=== PATIENT | female | born 1935 | race Caucasian/White ===

== ENCOUNTER 2018-08-14 13:33 | Inpatient (IN) | payer MEDICARE ==
[2018-08-14 13:51] VITALS: BMI 31.3
[2018-08-14] MEDS ORDERED: Sodium Chloride 0.9% 1,000 ML IV SCH (14:15)
[2018-08-14 14:21] LABS: VENOUS BLOOD GAS BASE EXCESS 2.7 mmol/L (0.0-2.0); VENOUS BLOOD GAS PCO2 50 mmHg (40-60); VENOUS BLOOD GAS PO2 24 mm/Hg (30-55); VENOUS BLOOD PH 7.37 (7.32-7.43)
--- NOTE | 2018-08-14 14:32 | ED PDOC ---
HPI: Altered Mental Status Time Seen by Provider: 08/14/18 13:39 Chief Complaint (Provider): Altered Mental Status History Per: Patient, Family (son) History/Exam Limitations: None Onset/Duration Of Symptoms: Days (x2 weeks) Current Symptoms Are (Timing): Still Present Additional Complaint(s): 83 year old female with pmhx of HTN, dementia, and CAD presents to the ED with son, Dr. Quintero of [facility], for evaluation of an altered mental status. As per son, he has been treating pt along with Dr. Brewer for a presumed UTI beginning two weeks ago with macrobid. He states that he did not think she was taking it as prescribed, and thus did not get better, so was started on a second course of it. Over the past week, son states he moved in with pt to observe her becoming more confused and forgetful, i.e. forgetting how to cook, leaving stove on, not knowing how to stir. Today, patient wandered to her jain where she was brought back home by another churchgoer, prompting Dr. Quintero to bring her in for evaluation. Patient is not complaining of anything herself, but son additionally notes that he finds her talking out loud to her parents who when she was [age]. Otherwise denies abdominal pain, chest pain, cough, and back pain. PMD: Dr. Brewer Past Medical History Reviewed: Historical Data, Nursing Documentation, Vital Signs Vital Signs: Last Vital Signs Temp 98 F 08/14/18 13:50 Pulse 83 08/14/18 13:50 Resp BP 161/84 H 08/14/18 13:50 Pulse Ox 100 08/14/18 13:50 - Medical History PMH: Arthritis, CAD, Cardia Arrhythmia, Dementia, Gastritis, HTN, Hypercholesterolemia, Kidney Stones, Chronic Kidney Disease Denies: HIV - Surgical History Surgical History: Cholecystectomy, Pacemaker - Family History Family History: States: Unknown Family Hx - Social History Current smoker - smoking cessation education provided: No Alcohol: None Drugs: Denies - Home Medications Home Medications: Ambulatory Orders Medication Instructions Recorded Atorvastatin Calcium [Lipitor] 40 mg PO HS 05/22/14 Clopidogrel [Plavix] 75 mg PO HS 05/22/14 Esomeprazole Magnesium [Nexium] 40 mg PO DAILY 05/22/14 Folic Acid/Kamilah/Vit A/Vit 1 tab PO DAILY 05/22/14 [Abdielnadyabret Barron] Amlodipine/Valsartan [Exforge 5 1 tab PO DAILY 03/15/15 mg-320 mg] Metoprolol Tartrate [Lopressor] 50 mg PO HS 03/15/15 Ondansetron [Zofran] 4 mg PO Q6H PRN #10 tab 09/09/15 - Allergies Allergies/Adverse Reactions: Allergies Allergy/AdvReac Type Severity Reaction Status Date / Time pineapple AdvReac PAIN Verified 08/13/15 06:39 Review of Systems ROS Statement: Except As Marked, All Systems Reviewed And Found Negative Cardiovascular: Negative for: Chest Pain Respiratory: Negative for: Cough Gastrointestinal: Negative for: Abdominal Pain Musculoskeletal: Negative for: Back Pain Neurological: Positive for: Altered Mental Status Physical Exam - Reviewed Nursing Documentation Reviewed: Yes Vital Signs Reviewed: Yes - Physical Exam Appears: Positive for: No Acute Distress Head Exam: Positive for: ATRAUMATIC, NORMOCEPHALIC Skin: Positive for: Normal Color, Warm. Negative for: Rash Eye Exam: Positive for: Normal appearance ENT: Positive for: Other (mucous membranes dry) Neck: Positive for: Normal, Painless ROM, Supple Cardiovascular/Chest: Positive for: Regular Rate, Rhythm Respiratory: Positive for: Normal Breath Sounds. Negative for: Crackles, Rales, Rhonchi, Wheezing, Respiratory Distress Gastrointestinal/Abdominal: Positive for: Soft, Tenderness (mild bilateral lower and suprapubic tenderness) Back: Negative for: L CVA Tenderness, R CVA Tenderness Extremity: Negative for: Pedal Edema Neurologic/Psych: Positive for: Alert, Oriented, Mood/Affect (cooperative) - Laboratory Results Result Diagrams: 08/14/18 14:13 08/14/18 14:13 Lab Results: pO2 24 mm/Hg (30-55) L 08/14/18 14:15 VBG pH 7.37 (7.32-7.43) 08/14/18 14:15 VBG pCO2 50 mmHg (40-60) 08/14/18 14:15 VBG HCO3 25.5 mmol/L 08/14/18 14:15 VBG Total CO2 30.4 mmol/L (22-28) H 08/14/18 14:15 VBG O2 Sat (Calc) 48.6 % (40-65) 08/14/18 14:15 VBG Base Excess 2.7 mmol/L (0.0-2.0) H 08/14/18 14:15 VBG Potassium 4.8 mmol/L (3.6-5.2) 08/14/18 14:15 Sodium 139.0 mmol/L (132-148) 08/14/18 14:15 Chloride 107.0 mmol/L (98-107) 08/14/18 14:15 Glucose 117 mg/dL (65-105) H 08/14/18 14:15 Lactate 2.3 mmol/L (0.7-2.1) H 08/14/18 14:15 FiO2 21.0 % 08/14/18 14:15 Blood Gas Comments Lac=2.3 08/14/18 14:15 Crit Value Called To shadia Seth 08/14/18 14:15 Crit Value Called By 08/14/18 14:15 Crit Value Read Back Y 08/14/18 14:15 Blood Gas Notified Time 1421 08/14/18 14:15 - ECG O2 Sat by Pulse Oximetry: 100 (RA) Pulse Ox Interpretation: Normal Medical Decision Making Medical Decision Making: Time: 1401 Initial Impression: acute delirium, dementia, possible sepsis Initial Plan: --VBG --CT head without contrast --EKG --CMP --Folate chem --Magnesium chem --Phosphorus chem --TSH --Vitamin B12 chem --CBC with differential --PT / PTT --CXR --NS IV fluids --Rocephin 1gm NS 100ml IVPB --Blood culture --Urine culture --Rectal temp --RPR --Urinary catheter placement --Place on quality assurance monitor final --Urinalysis CXR FINDINGS: LUNGS: No active pulmonary disease. PLEURA: No significant pleural effusion identified, no pneumothorax apparent. CARDIOVASCULAR: No radiographic findings to suggest acute or significant cardiovascular disease. Position/ configuration of pacemaker\AICD device: Satisfactory. Atherosclerotic calcifications identified primarily aortic arch. OSSEOUS STRUCTURES: No significant abnormalities. VISUALIZED UPPER ABDOMEN: Normal. OTHER FINDINGS: None. IMPRESSION: No active disease. No significant interval change compared to the prior examination(s). Scribe Attestation: Documented by Soniya Villa, acting as a scribe for Shadia Haro MD. Provider Scribe Attestation: All medical record entries made by the Scribe were at my direction and personally dictated by me. I have reviewed the chart and agree that the record accurately reflects my personal performance of the history, physical exam, medical decision making, and the department course for this patient. I have also personally directed, reviewed, and agree with the discharge instructions and disposition. 2.30p - case d/w Dr. Brewer - Admit to med/surg for IV hydration and antibiotics for dehydration/UTI causing acute mental status change on chronic long standing dementia. Disposition - Clinical Impression Clinical Impression: Altered mental status - Patient ED Disposition Is Patient to be Admitted: Yes Doctor Will See Patient In The: Hospital - Disposition Disposition: Transfer of Care Disposition Time: 14:50 Condition: FAIR Instructions: Altered Mental Status (DC) - Pt Status Changed To: Hospital Disposition Of: Inpatient - Admit Certification Admit to Inpatient:: After my assessment, the patient will require hospitalization for at least two midnights. This is because of the severity of symptoms shown, intensity of services needed, and/or the medical risk in this patient being treated as an outpatient. - POA Present On Arrival: None
[2018-08-14 14:34] LABS: BASO # 0.1 K/uL (0.0-0.2); BASO % 1.1 % (0.0-2.0); EOS # 0.1 K/uL (0.0-0.7); EOS % 1.3 % (0.0-4.0); HEMOGLOBIN 12.7 g/dL (12.0-16.0); MEAN CELL VOLUME 84.4 fl (81.0-99.0); MEAN CORPUSCULAR HEMOGLOBIN 27.4 pg (27.0-31.0); MEAN CORPUSCULAR HGB CONC 32.5 g/dL (33.0-37.0); MEAN PLATELET VOLUME 7.8 fl (7.2-11.7); MONO # 0.7 K/uL (0.0-0.8); MONO % 8.8 % (0.0-10.0); NEUT # 5.2 K/uL (1.8-7.0); NEUT % 63.8 % (50.0-75.0); NRBC % 0.1 % (0.0-0.0); RBC 4.64 Mil/uL (3.80-5.20); RED CELL DISTRIBUTION WIDTH 14.1 % (11.5-14.5); WHITE BLOOD COUNT 8.1 K/uL (4.8-10.8)
--- NOTE | 2018-08-14 14:35 | RAD ---
Date of service: 08/14/2018 HISTORY: Sepsis Patient COMPARISON: 08/13/2015 FINDINGS: LUNGS: No active pulmonary disease. PLEURA: No significant pleural effusion identified, no pneumothorax apparent. CARDIOVASCULAR: No radiographic findings to suggest acute or significant cardiovascular disease. Position/ configuration of pacemaker Atherosclerotic calcifications identified primarily aortic arch. OSSEOUS STRUCTURES: No significant abnormalities. VISUALIZED UPPER ABDOMEN: Normal. OTHER FINDINGS: None. IMPRESSION: No active disease. No significant interval change compared to the prior examination(s).
[2018-08-14 14:38] LABS: INR 1.1
[2018-08-14 14:41] LABS: PARTIAL THROMBOPLASTIN TIME 32.6 Seconds (25.6-37.1)
[2018-08-14 14:42] LABS: ALB/GLOB RATIO 1.2 (1.0-2.1); ALBUMIN 4.1 g/dL (3.5-5.0); ALT/SGPT 21 U/L (9-52); AST/SGOT 29 U/L (14-36); BLOOD UREA NITROGEN 24 mg/dl (7-17); CALCIUM 9.9 mg/dL (8.4-10.2); GFR NON-AFRICAN AMERICAN 53
[2018-08-14] MEDS ORDERED: cefTRIAXone (Rocephin) 1 gm Inj ONE (15:03)
[2018-08-14 15:11] LABS: URINE BILIRUBIN NEGATIVE (NEGATIVE); URINE CLARITY CLEAR (Clear); URINE COLOR LIGHT YELLOW (YELLOW); URINE GLUCOSE (UA) NEGATIVE (NEGATIVE)
[2018-08-14 15:12] LABS: SQUAMOUS EPITHIAL 1 /hpf (0-5); URINE BACTERIA RARE (<OCC); URINE BLOOD NEGATIVE (NEGATIVE); URINE LEUKOCYTE ESTERASE NEGATIVE Leu/uL (Negative); URINE PROTEIN NEGATIVE (NEGATIVE); URINE UROBILINOGEN 0.2-1.0 mg/dL (0.2-1.0)
--- NOTE | 2018-08-14 15:52 | CT ---
Date of service: 08/14/2018 PROCEDURE: CT HEAD WITHOUT CONTRAST. HISTORY: Confusion. COMPARISON: 07/19/2012. TECHNIQUE: Axial computed tomography images were obtained through the head/brain without intravenous contrast. Supplemental Coronal and Sagittal projections created and reviewed. Radiation dose: Total exam DLP = 712.46 mGy-cm. This CT exam was performed using one or more of the following dose reduction techniques: Automated exposure control, adjustment of the mA and/or kV according to patient size, and/or use of iterative reconstruction technique. FINDINGS: HEMORRHAGE: No intracranial hemorrhage. BRAIN: No mass effect or edema. Cortical and cerebellar atrophy, periventricular small vessel disease. Evidence of left occipital infarct, a nonacute finding although not seen on the prior examination. VENTRICLES: Unremarkable. No hydrocephalus. CALVARIUM: Unremarkable. PARANASAL SINUSES: Unremarkable as visualized. No significant inflammatory changes. MASTOID AIR CELLS: Unremarkable as visualized. No inflammatory changes. OTHER FINDINGS: None. IMPRESSION: No acute findings related to/ accounting for the clinical presentation. No significant interval change compared to 07/19/2012.
--- NOTE | 2018-08-14 20:29 | CARD ---
APPROVED REPORT Date of service: 08/14/2018 EKG Measurement Heart [id number] MD [id number] <Conclusion> Normal sinus rhythm with marked first degree AVB NDSTT abnormalities Borderlinel ECG
[2018-08-14] MEDS: Dextrose 5%/0.45% NS 1,000 ML IV SCH (20:35)
[2018-08-15 07:12] LABS: BASO % 0.6 % (0.0-2.0); EOS # 0.1 K/uL (0.0-0.7); EOS % 1.5 % (0.0-4.0); HEMOGLOBIN 12.4 g/dL (12.0-16.0); MEAN CELL VOLUME 83.8 fl (81.0-99.0); MEAN CORPUSCULAR HEMOGLOBIN 28.2 pg (27.0-31.0); MEAN CORPUSCULAR HGB CONC 33.6 g/dL (33.0-37.0); MONO # 0.4 K/uL (0.0-0.8); MONO % 6.3 % (0.0-10.0); NEUT # 4.5 K/uL (1.8-7.0); NEUT % 63.6 % (50.0-75.0); NRBC % 0.1 % (0.0-0.0); RBC 4.4 Mil/uL (3.80-5.20); RED CELL DISTRIBUTION WIDTH 14.1 % (11.5-14.5)
[2018-08-15 07:25] LABS: ALB/GLOB RATIO 1.2 (1.0-2.1); ALBUMIN 3.8 g/dL (3.5-5.0); ALT/SGPT 17 U/L (9-52); AST/SGOT 24 U/L (14-36); BLOOD UREA NITROGEN 16 mg/dl (7-17); CALCIUM 9.5 mg/dL (8.4-10.2); GFR NON-AFRICAN AMERICAN > 60; HDL CHOLESTEROL 47 MG/DL (30-70)
[2018-08-15 07:31] LABS: LDL CHOLESTEROL 102 mg/dL (0-129)
[2018-08-15] MEDS: Pantoprazole 40 mg EC Tab PO SCH (08:40)
[2018-08-15] MEDS ORDERED: AMLODIPINE PO SCH (09:00)
[2018-08-15] MEDS ORDERED: VALSARTAN PO SCH (09:00)
[2018-08-15] MEDS: Dextrose 5%/0.45% NS 1,000 ML IV SCH (10:02)
--- NOTE | 2018-08-15 12:14 | CP.PCM.CON ---
History of Present Illness - History of Present Illness History of Present Illness: consult requested for altered mental status 83 year old female with pmhx of HTN, dementia, and CAD presents to the ED with son, for evaluation of an altered mental status. as per son pt was noted to be confused and talking to self on evaluation pt is pleasant cooperative with good eye contact , reported that she lately had decreased appetite, pt was alert and awake denied changes in sleep, speech was normal thought form circumstantial, denied any mood changes, denied perceptual disturbances, non elicited , denied any current suicidal or homicidal ideation oriented to person and partially to place, not oriented to time pt reported that at current mental status she needs help with her instrumental daily activities Past Patient History - Tetanus Immunizations Tetanus Immunization: Unknown - Past Medical History & Family History Past Medical History?: Yes - Past Social History Smoking Status: Never Smoked - CARDIAC Hx Cardia Arrhythmia: Yes Hx Hypercholesterolemia: Yes Hx Hypertension: Yes Hx Pacemaker: Yes - PULMONARY Hx Respiratory Disorders: No - NEUROLOGICAL Hx Dementia: Yes - HEENT Hx HEENT Problems: No - RENAL Hx Chronic Kidney Disease: Yes - ENDOCRINE/METABOLIC Hx Endocrine Disorders: No - HEMATOLOGICAL/ONCOLOGICAL Hx Human Immunodeficiency Virus (HIV): No - INTEGUMENTARY Hx Dermatological Problems: No - MUSCULOSKELETAL/RHEUMATOLOGICAL Hx Arthritis: Yes Hx Falls: Yes - GASTROINTESTINAL Hx Gastritis: Yes - GENITOURINARY/GYNECOLOGICAL Hx Genitourinary Disorders: No - PSYCHIATRIC Hx Psychophysiologic Disorder: No Hx Substance Use: No - SURGICAL HISTORY Hx Cholecystectomy: Yes - ANESTHESIA Hx Anesthesia: Yes Hx Anesthesia Reactions: No Hx Malignant Hyperthermia: No Meds Allergies/Adverse Reactions: Allergies Allergy/AdvReac Type Severity Reaction Status Date / Time pineapple AdvReac PAIN Verified 08/13/15 06:39 - Medications Medications: Current Medications Acetaminophen (Tylenol 325mg Tab) 650 mg PO Q6 PRN PRN Reason: Pain, Mild (1-3) Atorvastatin Calcium (Lipitor) 40 mg PO HS [facility] Last Admin: 08/14/18 22:50 Dose: 40 mg Clopidogrel Bisulfate (Plavix) 75 mg PO HS [facility] Last Admin: 08/14/18 21:01 Dose: 75 mg Home Med (Amlodipine/Valsartan [Exforge 5-320 Mg Tablet]) 1 tab PO DAILY [facility] Dextrose/Sodium Chloride (Dextrose 5%/0.45% Ns 1000 Ml) 1,000 mls @ 80 mls/hr IV .[id number] [facility] Stop: 08/15/18 20:11 Last Admin: 08/14/18 20:35 Dose: 80 mls/hr Ceftriaxone Sodium 1 gm/ (Sodium Chloride) 100 mls @ 100 mls/hr IVPB DAILY [facility]; Protocol Last Admin: 08/15/18 08:37 Dose: 100 mls/hr Metoprolol Tartrate (Lopressor) 50 mg PO HS [facility] Last Admin: 08/14/18 21:01 Dose: 50 mg Ondansetron HCl (Zofran Tab) 4 mg PO Q6H PRN PRN Reason: Nausea/Vomiting Last Admin: 08/14/18 20:33 Dose: 4 mg Ondansetron HCl (Zofran Inj) 4 mg IVP Q4 PRN PRN Reason: Nausea/Vomiting Last Admin: 08/15/18 08:37 Dose: 4 mg Pantoprazole Sodium (Protonix Ec Tab) 40 mg PO DAILY [facility] Last Admin: 08/15/18 08:40 Dose: 40 mg Results - Vital Signs Recent Vital Signs: Last Vital Signs Temp 97.9 F 08/15/18 08:53 Pulse 63 08/15/18 08:53 Resp 20 08/15/18 08:53 BP 165/69 H 08/15/18 08:53 Pulse Ox 99 08/15/18 08:53 - Labs Result Diagrams: 08/15/18 06:50 08/15/18 06:50 Labs: Laboratory Results - last 24 hr 08/14/18 08/14/18 08/14/18 14:13 14:13 14:13 WBC 8.1 RBC 4.64 Hgb 12.7 Hct 39.1 MCV 84.4 MCH 27.4 MCHC 32.5 L RDW 14.1 Plt Count 228 MPV 7.8 Neut % (Auto) 63.8 Lymph % (Auto) 25.0 Grady % (Auto) 8.8 Eos % (Auto) 1.3 Baso % (Auto) 1.1 Neut # (Auto) 5.2 Lymph # (Auto) 2.0 Grady # (Auto) 0.7 Eos # (Auto) 0.1 Baso # (Auto) 0.1 PT 12.0 INR 1.1 APTT 32.6 pO2 VBG pH VBG pCO2 VBG HCO3 VBG Total CO2 VBG O2 Sat (Calc) VBG Base Excess VBG Potassium Glucose Lactate FiO2 Blood Gas Comments Crit Value Called To Crit Value Called By Crit Value Read Back Blood Gas Notified Time Sodium 140 Potassium 4.8 Chloride 102 Carbon Dioxide 28 Anion Gap 15 BUN 24 H Creatinine 1.0 Est GFR ( Amer) > 60 Est GFR (Non-Af Amer) 53 Random Glucose 113 H Calcium 9.9 Phosphorus 3.4 Magnesium 2.0 Total Bilirubin 0.3 AST 29 ALT 21 Alkaline Phosphatase 75 Total Protein 7.4 Albumin 4.1 Globulin 3.3 Albumin/Globulin Ratio 1.2 Triglycerides Cholesterol LDL Cholesterol Direct HDL Cholesterol Vitamin B12 767 Thyroxine (T4) TSH 3rd Generation 4.92 H Venous Blood Potassium Urine Color Urine Clarity Urine pH Ur Specific [place] Urine Protein Urine Glucose (UA) Urine Ketones Urine Blood Urine Nitrate Urine Bilirubin Urine Urobilinogen Ur Leukocyte Esterase Urine RBC (Auto) Urine Microscopic WBC Ur Squamous Epith Cells Urine Bacteria RPR 08/14/18 08/14/18 08/14/18 14:15 14:24 14:40 WBC RBC Hgb Hct MCV MCH MCHC RDW Plt Count MPV Neut % (Auto) Lymph % (Auto) Grady % (Auto) Eos % (Auto) Baso % (Auto) Neut # (Auto) Lymph # (Auto) Grady # (Auto) Eos # (Auto) Baso # (Auto) PT INR APTT pO2 24 L VBG pH 7.37 VBG pCO2 50 VBG HCO3 25.5 VBG Total CO2 30.4 H VBG O2 Sat (Calc) 48.6 VBG Base Excess 2.7 H VBG Potassium 4.8 Glucose 117 H Lactate 2.3 H FiO2 21.0 Blood Gas Comments Lac=2.3 Crit Value Called To lupe Seth Crit Value Called By 22 Crit Value Read Back Y Blood Gas Notified Time 1421 Sodium 139.0 Potassium Chloride 107.0 Carbon Dioxide Anion Gap BUN Creatinine Est GFR ( Amer) Est GFR (Non-Af Amer) Random Glucose Calcium Phosphorus Magnesium Total Bilirubin AST ALT Alkaline Phosphatase Total Protein Albumin Globulin Albumin/Globulin Ratio Triglycerides Cholesterol LDL Cholesterol Direct HDL Cholesterol Vitamin B12 Thyroxine (T4) TSH 3rd Generation Venous Blood Potassium 4.8 Urine Color Light yellow Urine Clarity Clear Urine pH 6.0 Ur Specific [place] 1.013 Urine Protein Negative Urine Glucose (UA) Negative Urine Ketones Trace Urine Blood Negative Urine Nitrate Negative Urine Bilirubin Negative Urine Urobilinogen 0.2-1.0 Ur Leukocyte Esterase Negative Urine RBC (Auto) 3 Urine Microscopic WBC 2 Ur Squamous Epith Cells 1 Urine Bacteria Rare RPR Nonreactive 08/15/18 08/15/18 06:50 06:50 WBC 7.0 RBC 4.40 Hgb 12.4 Hct 36.8 MCV 83.8 MCH 28.2 MCHC 33.6 RDW 14.1 Plt Count 232 MPV 8.0 Neut % (Auto) 63.6 Lymph % (Auto) 28.0 Grady % (Auto) 6.3 Eos % (Auto) 1.5 Baso % (Auto) 0.6 Neut # (Auto) 4.5 Lymph # (Auto) 2.0 Grady # (Auto) 0.4 Eos # (Auto) 0.1 Baso # (Auto) 0.0 PT INR APTT pO2 VBG pH VBG pCO2 VBG HCO3 VBG Total CO2 VBG O2 Sat (Calc) VBG Base Excess VBG Potassium Glucose Lactate FiO2 Blood Gas Comments Crit Value Called To Crit Value Called By Crit Value Read Back Blood Gas Notified Time Sodium 139 Potassium 4.4 Chloride 102 Carbon Dioxide 28 Anion Gap 13 BUN 16 Creatinine 0.8 Est GFR ( Amer) > 60 Est GFR (Non-Af Amer) > 60 Random Glucose 113 H Calcium 9.5 Phosphorus Magnesium Total Bilirubin 0.4 AST 24 ALT 17 Alkaline Phosphatase 66 Total Protein 7.0 Albumin 3.8 Globulin 3.2 Albumin/Globulin Ratio 1.2 Triglycerides 303 H D Cholesterol 205 H LDL Cholesterol Direct 102 HDL Cholesterol 47 Vitamin B12 764 Thyroxine (T4) 6.25 TSH 3rd Generation 2.73 Venous Blood Potassium Urine Color Urine Clarity Urine pH Ur Specific [place] Urine Protein Urine Glucose (UA) Urine Ketones Urine Blood Urine Nitrate Urine Bilirubin Urine Urobilinogen Ur Leukocyte Esterase Urine RBC (Auto) Urine Microscopic WBC Ur Squamous Epith Cells Urine Bacteria RPR Assessment & Plan - Assessment and Plan (Free Text) Assessment: delirium due to medical condition resolving Major neurocognitive disorder moderate Plan: recommend starting namenda 5mg daily could be increased to 10mg daily pt psychiatrically cleared for discharge upon medical clearance
--- NOTE | 2018-08-15 13:04 | CP.PCM.HP ---
History of Present Illness - History of Present Illness History of Present Illness: CC: AMS. 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 Worsening symptoms: Lack of appetite. Also, Pt star been Tx with Microbid for UTI 2 weeks ago without improvement, unknown if Pt took the complete course of abx. Pt continue with urinary burning and pressure sensation, mild intensity pain 3:10. She started 2nd course of abx over the past week. Aggravated factor: ADL's, not in compliance with medications. Denied: Fever, chills, n/v/d, abdominal pain, CP, palpitations, syncope, SOB, cough, back pain, sick contact, recent travel out of [facility]. CXR: No active disease. EKG: Normal sinus rythm with 1st degree AVB. NDSTT abnormalities. Present on Admission - Present on Admission Any Indicators Present on Admission: No Review of Systems - Review of Systems Systems not reviewed;Unavailable: Acuity of Condition, Dementia Past Patient History - Tetanus Immunizations Tetanus Immunization: Unknown - Past Medical History & Family History Past Medical History?: Yes Pertinent Family History: As per record: One sister with PPM. Father of Heart disease. Mother of Renal Failure. Brother of Alzheimer complication. - Past Social History Smoking Status: Never Smoked Alcohol: None Drugs: Denies Home Situation {Lives}: Alone - CARDIAC Hx Cardiac Disorders: Yes Hx Cardia Arrhythmia: Yes Hx Hypercholesterolemia: Yes Hx Hypertension: Yes Hx Pacemaker: Yes - PULMONARY Hx Respiratory Disorders: No - NEUROLOGICAL Hx Neurological Disorder: Yes Hx Dementia: Yes - HEENT Hx HEENT Problems: No - RENAL Hx Chronic Kidney Disease: Yes - ENDOCRINE/METABOLIC Hx Endocrine Disorders: No - HEMATOLOGICAL/ONCOLOGICAL Hx Blood Disorders: No Hx Human Immunodeficiency Virus (HIV): No - INTEGUMENTARY Hx Dermatological Problems: No - MUSCULOSKELETAL/RHEUMATOLOGICAL Hx Musculoskeletal Disorders: Yes Hx Arthritis: Yes Hx Falls: Yes - GASTROINTESTINAL Hx Gastrointestinal Disorders: Yes Hx Gastritis: Yes - GENITOURINARY/GYNECOLOGICAL Hx Genitourinary Disorders: No - PSYCHIATRIC Hx Psychophysiologic Disorder: No Hx Substance Use: No - SURGICAL HISTORY Hx Surgeries: Yes Hx Cholecystectomy: Yes - ANESTHESIA Hx Anesthesia: Yes Hx Anesthesia Reactions: No Hx Malignant Hyperthermia: No Meds Allergies/Adverse Reactions: Allergies Allergy/AdvReac Type Severity Reaction Status Date / Time pineapple AdvReac PAIN Verified 08/13/15 06:39 Physical Exam - Constitutional Appears: No Acute Distress - Head Exam Head Exam: NORMAL INSPECTION - Eye Exam Eye Exam: PERRL - ENT Exam ENT Exam: Normal Exam - Neck Exam Neck exam: Positive for: Normal Inspection - Respiratory Exam Respiratory Exam: NORMAL BREATHING PATTERN - Cardiovascular Exam Cardiovascular Exam: REGULAR RHYTHM - GI/Abdominal Exam GI & Abdominal Exam: Normal Bowel Sounds, Soft - Rectal Exam Rectal Exam: NORMAL INSPECTION - Extremities Exam Extremities exam: Positive for: normal inspection - Back Exam Back exam: NORMAL INSPECTION - Neurological Exam Additional comments: Awake, Ox1, confused, forgetful, disoriented. - Skin Skin Exam: Warm Results - Vital Signs Recent Vital Signs: Last Vital Signs Temp 97.9 F 08/15/18 08:53 Pulse 63 08/15/18 11:15 Resp 20 08/15/18 08:53 BP 165/69 H 08/15/18 11:15 Pulse Ox 99 08/15/18 08:53 reviewed Lyric - Labs Result Diagrams: 08/15/18 06:50 08/15/18 06:50 Labs: Laboratory Results - last 24 hr 08/14/18 08/14/18 08/14/18 14:13 14:13 14:13 WBC 8.1 RBC 4.64 Hgb 12.7 Hct 39.1 MCV 84.4 MCH 27.4 MCHC 32.5 L RDW 14.1 Plt Count 228 MPV 7.8 Neut % (Auto) 63.8 Lymph % (Auto) 25.0 Gray % (Auto) 8.8 Eos % (Auto) 1.3 Baso % (Auto) 1.1 Neut # (Auto) 5.2 Lymph # (Auto) 2.0 Gray # (Auto) 0.7 Eos # (Auto) 0.1 Baso # (Auto) 0.1 PT 12.0 INR 1.1 APTT 32.6 pO2 VBG pH VBG pCO2 VBG HCO3 VBG Total CO2 VBG O2 Sat (Calc) VBG Base Excess VBG Potassium Glucose Lactate FiO2 Blood Gas Comments Crit Value Called To Crit Value Called By Crit Value Read Back Blood Gas Notified Time Sodium 140 Potassium 4.8 Chloride 102 Carbon Dioxide 28 Anion Gap 15 BUN 24 H Creatinine 1.0 Est GFR ( Amer) > 60 Est GFR (Non-Af Amer) 53 Random Glucose 113 H Calcium 9.9 Phosphorus 3.4 Magnesium 2.0 Total Bilirubin 0.3 AST 29 ALT 21 Alkaline Phosphatase 75 Total Protein 7.4 Albumin 4.1 Globulin 3.3 Albumin/Globulin Ratio 1.2 Triglycerides Cholesterol LDL Cholesterol Direct HDL Cholesterol Vitamin B12 767 Thyroxine (T4) TSH 3rd Generation 4.92 H Venous Blood Potassium Urine Color Urine Clarity Urine pH Ur Specific [place] Urine Protein Urine Glucose (UA) Urine Ketones Urine Blood Urine Nitrate Urine Bilirubin Urine Urobilinogen Ur Leukocyte Esterase Urine RBC (Auto) Urine Microscopic WBC Ur Squamous Epith Cells Urine Bacteria RPR 08/14/18 08/14/18 08/14/18 14:15 14:24 14:40 WBC RBC Hgb Hct MCV MCH MCHC RDW Plt Count MPV Neut % (Auto) Lymph % (Auto) Gray % (Auto) Eos % (Auto) Baso % (Auto) Neut # (Auto) Lymph # (Auto) Gray # (Auto) Eos # (Auto) Baso # (Auto) PT INR APTT pO2 24 L VBG pH 7.37 VBG pCO2 50 VBG HCO3 25.5 VBG Total CO2 30.4 H VBG O2 Sat (Calc) 48.6 VBG Base Excess 2.7 H VBG Potassium 4.8 Glucose 117 H Lactate 2.3 H FiO2 21.0 Blood Gas Comments Lac=2.3 Crit Value Called To lupe Seth Crit Value Called By 22 Crit Value Read Back Y Blood Gas Notified Time 1421 Sodium 139.0 Potassium Chloride 107.0 Carbon Dioxide Anion Gap BUN Creatinine Est GFR ( Amer) Est GFR (Non-Af Amer) Random Glucose Calcium Phosphorus Magnesium Total Bilirubin AST ALT Alkaline Phosphatase Total Protein Albumin Globulin Albumin/Globulin Ratio Triglycerides Cholesterol LDL Cholesterol Direct HDL Cholesterol Vitamin B12 Thyroxine (T4) TSH 3rd Generation Venous Blood Potassium 4.8 Urine Color Light yellow Urine Clarity Clear Urine pH 6.0 Ur Specific [place] 1.013 Urine Protein Negative Urine Glucose (UA) Negative Urine Ketones Trace Urine Blood Negative Urine Nitrate Negative Urine Bilirubin Negative Urine Urobilinogen 0.2-1.0 Ur Leukocyte Esterase Negative Urine RBC (Auto) 3 Urine Microscopic WBC 2 Ur Squamous Epith Cells 1 Urine Bacteria Rare RPR Nonreactive 08/15/18 08/15/18 06:50 06:50 WBC 7.0 RBC 4.40 Hgb 12.4 Hct 36.8 MCV 83.8 MCH 28.2 MCHC 33.6 RDW 14.1 Plt Count 232 MPV 8.0 Neut % (Auto) 63.6 Lymph % (Auto) 28.0 Gray % (Auto) 6.3 Eos % (Auto) 1.5 Baso % (Auto) 0.6 Neut # (Auto) 4.5 Lymph # (Auto) 2.0 Gray # (Auto) 0.4 Eos # (Auto) 0.1 Baso # (Auto) 0.0 PT INR APTT pO2 VBG pH VBG pCO2 VBG HCO3 VBG Total CO2 VBG O2 Sat (Calc) VBG Base Excess VBG Potassium Glucose Lactate FiO2 Blood Gas Comments Crit Value Called To Crit Value Called By Crit Value Read Back Blood Gas Notified Time Sodium 139 Potassium 4.4 Chloride 102 Carbon Dioxide 28 Anion Gap 13 BUN 16 Creatinine 0.8 Est GFR ( Amer) > 60 Est GFR (Non-Af Amer) > 60 Random Glucose 113 H Calcium 9.5 Phosphorus Magnesium Total Bilirubin 0.4 AST 24 ALT 17 Alkaline Phosphatase 66 Total Protein 7.0 Albumin 3.8 Globulin 3.2 Albumin/Globulin Ratio 1.2 Triglycerides 303 H D Cholesterol 205 H LDL Cholesterol Direct 102 HDL Cholesterol 47 Vitamin B12 764 Thyroxine (T4) 6.25 TSH 3rd Generation 2.73 Venous Blood Potassium Urine Color Urine Clarity Urine pH Ur Specific [place] Urine Protein Urine Glucose (UA) Urine Ketones Urine Blood Urine Nitrate Urine Bilirubin Urine Urobilinogen Ur Leukocyte Esterase Urine RBC (Auto) Urine Microscopic WBC Ur Squamous Epith Cells Urine Bacteria RPR reviewed J.P. - EKG Data EKG comments: reviewed J.P. - Imaging and Cardiology Chest x-ray Status: Report reviewed by me ([email or web address].) Assessment & Plan (1) Altered mental status Status: Acute Priority: High (2) Major neurocognitive disorder Status: Acute Priority: High (3) Delirium Status: Resolved (4) Hypertension Status: Chronic Priority: High (5) CAD (coronary artery disease) Status: Chronic Priority: Medium (6) High cholesterol Status: Chronic Priority: High (7) Pacemaker Status: Chronic Priority: Medium - Assessment and Plan (Free Text) Plan: Continue Ceftriaxone, Lipitor, Namenda, Lopressor, Cozaar, Norvasc, Protonix and rest of Tx. Neurology consult appreciated. - Date & Time Date: 08/15/18 Time: 09:30
[2018-08-15 16:47] LABS: FOLATE 13.9 ng/mL
--- NOTE | 2018-08-15 18:02 | CARD ---
APPROVED REPORT Date of service: 08/15/2018 EXAM: Two-dimensional and M-mode echocardiogram with Doppler and color Doppler. Other Information Quality : GoodRhythm : Pacemaker INDICATION LV Function:SystolicDiastolic 2D DIMENSIONS IVSd0.90 (0.7-1.1cm)LVDd3.56 (3.9-5.9cm) LVOT Diameter1.93 (1.8-2.4cm)PWd0.79 (0.7-1.1cm) IVSs1.13 (0.8-1.2cm)LVDs1.71 (2.5-4.0cm) FS (%) 51.9 %PWs1.19 (0.8-1.2cm) M-Mode DIMENSIONS Left Atrium (MM)4.43 (2.5-4.0cm)IVSd0.75 (0.7-1.1cm) Aortic Root2.44 (2.2-3.7cm)LVDd5.71 (4.0-5.6cm) Aortic Cusp Exc.1.34 (1.5-2.0cm)PWd1.00 (0.7-1.1cm) IVSs1.47 cmFS (%) 41 % LVDs3.35 (2.0-3.8cm)PWs1.39 cm Aortic Valve AoV Peak Ubuunzmj412.0cm/sAoV VTI24.3cmAO Peak GR.7mmHg LVOT Peak Czgcjkka654.1cm/sLVOT VTI20.86cmAO Mean GR.4mmHg EARL (VMAX)1.46yb2CFT (VTI)1.55cm2 Mitral Valve E/A ratio0.0 TDI E/Lateral E'0.0E/Medial E'0.0 Tricuspid Valve TR Peak [id number]/sRAP [id number] Peak Gr.26mmHg [id number] LEFT VENTRICLE The left ventricle is normal size. There is normal left ventricular wall thickness. The left ventricular systolic function is normal. The estimated ejection fraction is 60-65% No regional wall motion abnormalities noted.. Transmitral Doppler flow pattern is Grade II-pseudonormal filling dynamics. No left ventricle thrombus noted on this study. There is no ventricular septal defect visualized. There is no left ventricular aneurysm. There is no mass noted in the left ventricle. RIGHT VENTRICLE The right ventricle is normal size. There is normal right ventricular wall thickness. The right ventricular systolic function is normal. A PPM lead is seen in right atrium and right ventricle. ATRIA The left atrium is mildly dilated. The right atrium size is normal. The interatrial septum is intact with no evidence for an atrial septal defect. AORTIC VALVE The aortic valve is normal in structure. No aortic regurgitation is present. There is no aortic valvular stenosis. There is no aortic valvular vegetation. MITRAL VALVE The mitral valve is normal in structure. There is no evidence of mitral valve prolapse. There is no mitral valve stenosis. There is mild mitral valve regurgitation noted. TRICUSPID VALVE The tricuspid valve is normal in structure. There is mild tricuspid valve regurgitation noted. RVSP is calculated at 30 mm Hg. There is no tricuspid valve prolapse or vegetation. There is no tricuspid valve stenosis. PULMONIC VALVE The pulmonary valve is normal in structure. There is no pulmonic valvular regurgitation. There is no pulmonic valvular stenosis. GREAT VESSELS The aortic root is normal in size. The ascending aorta is normal in size. The pulmonary artery is normal. The IVC is normal in size and collapses >50% with inspiration. PERICARDIAL EFFUSION There is no pericardial effusion. There is no pleural effusion. <Conclusion> The estimated ejection fraction is 60-65% Transmitral Doppler flow pattern is Grade II-pseudonormal filling dynamics. A PPM lead is seen in right atrium and right ventricle. The left atrium is mildly dilated. There is mild mitral valve regurgitation noted. There is mild tricuspid valve regurgitation noted. RVSP is calculated at 30 mm Hg. The IVC is normal in size and collapses >50% with inspiration.
[2018-08-16] MEDS: Pantoprazole 40 mg EC Tab PO SCH (08:39)
--- NOTE | 2018-08-16 12:16 | US ---
Date of service: 08/15/2018 PROCEDURE: Duplex ultrasound of the carotid and vertebral arteries. HISTORY: ams COMPARISON: None available. TECHNIQUE: Grayscale and duplex Doppler evaluation of the cervical carotid and vertebral arteries were performed. The common carotid, carotid bifurcations and cervical ICA and proximal ECA were evaluated. The vertebral arteries were evaluated for gross patency and direction. FINDINGS: RIGHT CAROTID ARTERIES: Common Carotid Artery: Normal. Maximal flow velocity of 109.7 cm/s. Carotid Bifurcation: Limited atherosclerotic plaque identified. Internal Carotid Artery:Normal. Maximal flow velocity of 88.7 cm/s. External Carotid Artery (proximal branches): Normal. Maximal flow velocity of 112.9 cm/s. ICA/CCA Ratio: 1.7 LEFT CAROTID ARTERIES: Common Carotid Artery: Normal. Maximal flow velocity of 102.1 cm/s. Carotid Bifurcation: Limited atherosclerotic plaque identified. Internal Carotid Artery:Normal. Maximal flow velocity of 100.3 cm/s. External Carotid Artery (proximal branches): Normal. Maximal flow velocity of 138.1 cm/s. ICA/CCA Ratio: 1.7 VERTEBRAL ARTERIES: Right Vertebral Artery: Patent. Antegrade flow. Left Vertebral Artery: Patent. Antegrade flow. OTHER FINDINGS: None. IMPRESSION: Limited atherosclerotic plaques in the bilateral carotid bulbs without significant stenosis in the bilateral common or internal carotid arteries in the neck identified. Antegrade blood flow is seen in the bilateral vertebral arteries.
--- NOTE | 2018-08-16 12:44 | CP.PCM.CON ---
History of Present Illness - History of Present Illness History of Present Illness: revaluation of patient/ according to staff pt last evening had an episode of agitation, increased irritability and was paranoid/ pt with hx of dementia possible owning pt this morning continues to have waxing and waning in her level of attention, , at times cooperative and other times, irritable, agitated and paranoid towards s taff, pt continues to be oriented to person and partially to place but not to time , Past Patient History - Tetanus Immunizations Tetanus Immunization: Unknown - Past Medical History & Family History Past Medical History?: Yes - Past Social History Smoking Status: Never Smoked Alcohol: None Drugs: Denies Home Situation {Lives}: Alone - CARDIAC Hx Cardiac Disorders: Yes Hx Cardia Arrhythmia: Yes Hx Hypercholesterolemia: Yes Hx Hypertension: Yes Hx Pacemaker: Yes - PULMONARY Hx Respiratory Disorders: No - NEUROLOGICAL Hx Neurological Disorder: Yes Hx Dementia: Yes - HEENT Hx HEENT Problems: No - RENAL Hx Chronic Kidney Disease: Yes - ENDOCRINE/METABOLIC Hx Endocrine Disorders: No - HEMATOLOGICAL/ONCOLOGICAL Hx Blood Disorders: No Hx Human Immunodeficiency Virus (HIV): No - INTEGUMENTARY Hx Dermatological Problems: No - MUSCULOSKELETAL/RHEUMATOLOGICAL Hx Musculoskeletal Disorders: Yes Hx Arthritis: Yes Hx Falls: Yes - GASTROINTESTINAL Hx Gastrointestinal Disorders: Yes Hx Gastritis: Yes - GENITOURINARY/GYNECOLOGICAL Hx Genitourinary Disorders: No - PSYCHIATRIC Hx Psychophysiologic Disorder: No Hx Substance Use: No - SURGICAL HISTORY Hx Surgeries: Yes Hx Cholecystectomy: Yes - ANESTHESIA Hx Anesthesia: Yes Hx Anesthesia Reactions: No Hx Malignant Hyperthermia: No Meds Allergies/Adverse Reactions: Allergies Allergy/AdvReac Type Severity Reaction Status Date / Time pineapple AdvReac PAIN Verified 08/13/15 06:39 - Medications Medications: Current Medications Acetaminophen (Tylenol 325mg Tab) 650 mg PO Q6 PRN PRN Reason: Pain, Mild (1-3) Amlodipine Besylate (Norvasc) 5 mg PO DAILY [facility] Last Admin: 08/16/18 08:39 Dose: 5 mg Atorvastatin Calcium (Lipitor) 40 mg PO HS [facility] Last Admin: 08/15/18 22:03 Dose: 40 mg Clopidogrel Bisulfate (Plavix) 75 mg PO HS [facility] Last Admin: 08/15/18 22:03 Dose: 75 mg Ceftriaxone Sodium 1 gm/ (Sodium Chloride) 100 mls @ 100 mls/hr IVPB DAILY [facility]; Protocol Last Admin: 08/16/18 08:36 Dose: 100 mls/hr Lorazepam (Ativan) 0.5 mg IVP Q8 PRN PRN Reason: Agitation Losartan Potassium (Cozaar) 100 mg PO DAILY [facility] Last Admin: 08/16/18 08:40 Dose: 100 mg Memantine (Namenda) 5 mg PO DAILY [facility] Last Admin: 08/16/18 08:39 Dose: 5 mg Metoprolol Tartrate (Lopressor) 50 mg PO HS [facility] Last Admin: 08/15/18 22:03 Dose: 50 mg Ondansetron HCl (Zofran Tab) 4 mg PO Q6H PRN PRN Reason: Nausea/Vomiting Last Admin: 08/14/18 20:33 Dose: 4 mg Ondansetron HCl (Zofran Inj) 4 mg IVP Q4 PRN PRN Reason: Nausea/Vomiting Last Admin: 08/16/18 07:43 Dose: 4 mg Pantoprazole Sodium (Protonix Ec Tab) 40 mg PO DAILY [facility] Last Admin: 08/16/18 08:39 Dose: 40 mg Risperidone (Risperdal Tab) 0.25 mg PO BID PRN PRN Reason: Agitation Results - Vital Signs Recent Vital Signs: Last Vital Signs Temp 98.5 F 08/16/18 08:13 Pulse 67 08/16/18 08:40 Resp 20 08/16/18 08:13 BP 167/69 H 08/16/18 08:40 Pulse Ox 98 08/16/18 08:13 - Labs Result Diagrams: 08/15/18 06:50 08/15/18 06:50 Labs: Laboratory Results - last 24 hr 08/14/18 08/15/18 08/15/18 14:13 06:50 06:50 Plt Count 232 25-OH Vitamin D Total 23.2 L Folate 13.9 Assessment & Plan - Assessment and Plan (Free Text) Assessment: delirium Major neurocognitive disorder Plan: recommend to start risperidone 0.25 mg bid haldol 0.25mg q6 prn for agitation pt at current mental;status needs arrangement by social sciences instructor for home care on discharge as patient needs assistance with instrumental daily activities and ADL
--- NOTE | 2018-08-16 15:55 | PQF ---
PROVIDER RESPONSE TEXT: UTI treated with iv rocephin, current diagnosis REVIEWER QUERY TEXT: Conflicting Documentation Clarification UTI is documented by the ER and in the admitting order. Treated as an outpatient for UTI. URINE CS <1 ,000 CFU/ML. Currently treated with Rocephin. Please clarify if UTI is a current diagnosis for this a dmission, ruled out or other explanation A single mention of UTI for the same clinical presentation appears in the record. Please clarify the diagnosis/diagnoses. Please also document if the condition is: -- Confirmed and current -- Confirmed, treated and resolved on the current admission -- Ruled out -- Other, please specify The patient's Clinical Indicators include: UTI is documented by the ER and in the admitting order. Treated as an outpatient for UTI. URINE CS <1 ,000 CFU/ML. Currently treated with Rocephin. Please clarify if UTI is a current diagnosis for this a dmission, ruled out or other explanation Query created by: Daina Gupta on 08/16/2018 10:23 AM Electronically signed by: Forest Brewer MD 08/16/2018 3:52 PM
--- NOTE | 2018-08-16 15:55 | PQF ---
PROVIDER RESPONSE TEXT: Dementia with behavioral disturbance. REVIEWER QUERY TEXT: Dementia Type and Associated Features Dementia is documented in the Medical Record. Please specify if the dementia is with or without behav ioral disturbance. Please also specify any behavioral disturbances Such as: -- Aggressive -- Violent -- Combative behavior -- Other, please specify The patient's Clinical Indicators include: Psych: Major neurocognitive disorder moderate Rx: Namenda, prn Ativan Query created by: Daina Gupta on 08/16/2018 10:33 AM Electronically signed by: Forest Brewer MD 08/16/2018 3:52 PM
--- NOTE | 2018-08-16 16:36 | CP.PCM.PN ---
Subjective - Date & Time of Evaluation Date of Evaluation: 08/16/18 Time of Evaluation: 14:35 - Subjective Subjective: F/U AMS. Arousable, agitated last night and in am, also nausea in am today, had Haldol and Zofran IV, calm now, Pt was seen by Psychiatrist programmer analyst consultant, was given Risperdal. Objective - Vital Signs/Intake and Output Vital Signs (last 24 hours): Temp Pulse Resp BP Pulse Ox 98.5 F 67 20 167/69 H 98 08/16/18 08:13 08/16/18 08:40 08/16/18 08:13 08/16/18 08:40 08/16/18 08:13 - Medications Medications: Current Medications Acetaminophen (Tylenol 325mg Tab) 650 mg PO Q6 PRN PRN Reason: Pain, Mild (1-3) Amlodipine Besylate (Norvasc) 5 mg PO DAILY [facility] Last Admin: 08/16/18 08:39 Dose: 5 mg Atorvastatin Calcium (Lipitor) 40 mg PO HS [facility] Last Admin: 08/15/18 22:03 Dose: 40 mg Clopidogrel Bisulfate (Plavix) 75 mg PO HS [facility] Last Admin: 08/15/18 22:03 Dose: 75 mg Haloperidol Lactate (Haldol) 0.5 mg IVP Q6 PRN PRN Reason: Agitation Ceftriaxone Sodium 1 gm/ (Sodium Chloride) 100 mls @ 100 mls/hr IVPB DAILY [facility]; Protocol Last Admin: 08/16/18 08:36 Dose: 100 mls/hr Losartan Potassium (Cozaar) 100 mg PO DAILY [facility] Last Admin: 08/16/18 08:40 Dose: 100 mg Memantine (Namenda) 5 mg PO DAILY [facility] Last Admin: 08/16/18 08:39 Dose: 5 mg Metoprolol Tartrate (Lopressor) 50 mg PO HS [facility] Last Admin: 08/15/18 22:03 Dose: 50 mg Ondansetron HCl (Zofran Tab) 4 mg PO Q6H PRN PRN Reason: Nausea/Vomiting Last Admin: 08/14/18 20:33 Dose: 4 mg Ondansetron HCl (Zofran Inj) 4 mg IVP Q4 PRN PRN Reason: Nausea/Vomiting Last Admin: 08/16/18 07:43 Dose: 4 mg Pantoprazole Sodium (Protonix Ec Tab) 40 mg PO DAILY [facility] Last Admin: 08/16/18 08:39 Dose: 40 mg Risperidone (Risperdal Tab) 0.25 mg PO BID PRN PRN Reason: Agitation - Labs Labs: 08/15/18 06:50 08/15/18 06:50 PT 12.0 Seconds (9.8-13.1) 08/14/18 14:13 INR 1.1 08/14/18 14:13 APTT 32.6 Seconds (25.6-37.1) 08/14/18 14:13 - Constitutional Appears: No Acute Distress - Head Exam Head Exam: NORMAL INSPECTION - Eye Exam Eye Exam: PERRL - ENT Exam ENT Exam: Normal Exam - Neck Exam Neck Exam: Normal Inspection - Respiratory Exam Respiratory Exam: NORMAL BREATHING PATTERN - Cardiovascular Exam Cardiovascular Exam: REGULAR RHYTHM Additional comments: PPM - GI/Abdominal Exam GI & Abdominal Exam: Soft, Normal Bowel Sounds - Extremities Exam Extremities Exam: Normal Inspection - Back Exam Back Exam: NORMAL INSPECTION - Neurological Exam Neurological Exam: Awake Additional comments: sleepy, arousable, Ox1, Forgetful, disoriented, no focal motor sensory deficit - Psychiatric Exam Additional comments: sleepy, arousable, calm ,confused, confabulations - Skin Skin Exam: Warm Assessment and Plan (1) Altered mental status Status: Acute (2) Major neurocognitive disorder Status: Acute (3) Delirium Status: Resolved (4) Hypertension Status: Chronic (5) CAD (coronary artery disease) Status: Chronic (6) High cholesterol Status: Chronic (7) Pacemaker Status: Chronic - Assessment and Plan (Free Text) Plan: Continue Namenda, Risperdal and rest of Tx, Blood C-s an U C-S negative, f/u consent for transfer to [facility].
[2018-08-17] MEDS: Pantoprazole 40 mg EC Tab PO SCH (08:54)
--- NOTE | 2018-08-17 12:35 | CP.PCM.CON ---
History of Present Illness - History of Present Illness History of Present Illness: follow up consult as per staff pt continues to have intermittent episodes, of agitation, resistance to care , paranoid towards staff possible sundowning pt at current mental status would benefit from admission to geriatric psychiatry for medication stabilization upon consent of POA for admission Past Patient History - Tetanus Immunizations Tetanus Immunization: Unknown - Past Medical History & Family History Past Medical History?: Yes - Past Social History Smoking Status: Never Smoked Alcohol: None Drugs: Denies Home Situation {Lives}: Alone - CARDIAC Hx Cardiac Disorders: Yes Hx Cardia Arrhythmia: Yes Hx Hypercholesterolemia: Yes Hx Hypertension: Yes Hx Pacemaker: Yes - PULMONARY Hx Respiratory Disorders: No - NEUROLOGICAL Hx Neurological Disorder: Yes Hx Dementia: Yes - HEENT Hx HEENT Problems: No - RENAL Hx Chronic Kidney Disease: Yes - ENDOCRINE/METABOLIC Hx Endocrine Disorders: No - HEMATOLOGICAL/ONCOLOGICAL Hx Blood Disorders: No Hx Human Immunodeficiency Virus (HIV): No - INTEGUMENTARY Hx Dermatological Problems: No - MUSCULOSKELETAL/RHEUMATOLOGICAL Hx Musculoskeletal Disorders: Yes Hx Arthritis: Yes Hx Falls: Yes - GASTROINTESTINAL Hx Gastrointestinal Disorders: Yes Hx Gastritis: Yes - GENITOURINARY/GYNECOLOGICAL Hx Genitourinary Disorders: No - PSYCHIATRIC Hx Psychophysiologic Disorder: No Hx Substance Use: No - SURGICAL HISTORY Hx Surgeries: Yes Hx Cholecystectomy: Yes - ANESTHESIA Hx Anesthesia: Yes Hx Anesthesia Reactions: No Hx Malignant Hyperthermia: No Meds Allergies/Adverse Reactions: Allergies Allergy/AdvReac Type Severity Reaction Status Date / Time pineapple AdvReac PAIN Verified 08/13/15 06:39 - Medications Medications: Current Medications Acetaminophen (Tylenol 325mg Tab) 650 mg PO Q6 PRN PRN Reason: Pain, Mild (1-3) Amlodipine Besylate (Norvasc) 5 mg PO DAILY [facility] Last Admin: 08/17/18 08:54 Dose: 5 mg Atorvastatin Calcium (Lipitor) [address] [facility] Last Admin: 08/16/18 21:41 Dose: 40 mg Clopidogrel Bisulfate (Plavix) 75 mg PO HS [facility] Last Admin: 08/16/18 21:40 Dose: 75 mg Haloperidol Lactate (Haldol) 0.5 mg IVP Q6 PRN PRN Reason: Agitation Ceftriaxone Sodium 1 gm/ (Sodium Chloride) 100 mls @ 100 mls/hr IVPB DAILY [facility]; Protocol Last Admin: 08/17/18 09:05 Dose: 100 mls/hr Losartan Potassium (Cozaar) 100 mg PO DAILY [facility] Last Admin: 08/17/18 08:53 Dose: 100 mg Memantine (Namenda) 5 mg PO DAILY [facility] Last Admin: 08/17/18 08:54 Dose: 5 mg Metoprolol Tartrate (Lopressor) 50 mg PO HS [facility] Last Admin: 08/16/18 21:40 Dose: 50 mg Ondansetron HCl (Zofran Tab) 4 mg PO Q6H PRN PRN Reason: Nausea/Vomiting Last Admin: 08/14/18 20:33 Dose: 4 mg Ondansetron HCl (Zofran Inj) 4 mg IVP Q4 PRN PRN Reason: Nausea/Vomiting Last Admin: 08/16/18 07:43 Dose: 4 mg Pantoprazole Sodium (Protonix Ec Tab) 40 mg PO DAILY [facility] Last Admin: 08/17/18 08:54 Dose: 40 mg Risperidone (Risperdal Tab) 0.25 mg PO BID PRN PRN Reason: Agitation Results - Vital Signs Recent Vital Signs: Last Vital Signs Temp 98.5 F 08/17/18 08:36 Pulse 108 H 08/17/18 08:54 Resp 19 08/17/18 08:36 BP 162/81 H 08/17/18 08:54 Pulse Ox 97 08/17/18 08:36 - Labs Result Diagrams: 08/15/18 06:50 08/15/18 06:50 Assessment & Plan - Assessment and Plan (Free Text) Assessment: major neurocognitive disorder Plan: continue with risperidone pt would benefit from admission to geriatric psychiatry for medication stabilization
[2018-08-17 16:12] VITALS: BP 119/70; PULSE 74; RESP 20; TEMP 98.1; O2SAT 95
--- NOTE | 2018-08-17 16:56 | CP.PCM.DIS ---
Provider - Provider Date of Admission: 08/14/18 14:50 Attending physician: Forest Brewer MD Consults: 08/15/18 07:28 Psychiatry Consult Routine Comment: Consulting Provider: Giacomo Luong Consulting Physician: Giacomo Luong Reason for Consult: AMS Diagnosis - Discharge Diagnosis (1) Altered mental status Status: Acute Priority: High (2) Major neurocognitive disorder Status: Acute Priority: High (3) Delirium Status: Resolved (4) Hypertension Status: Chronic Priority: High (5) CAD (coronary artery disease) Status: Chronic Priority: Medium (6) High cholesterol Status: Chronic Priority: High (7) Pacemaker Status: Chronic Priority: Medium (8) Dehydration Status: Acute (9) UTI (urinary tract infection) Status: Ruled-out Comment: UTI ruled out Hospital Course - Lab Results Lab Results: Micro Results 08/14/18 14:17 Blood Blood Culture - Preliminary NO GROWTH AFTER 3 DAYS 08/14/18 14:13 Blood Blood Culture - Preliminary NO GROWTH AFTER 3 DAYS 08/14/18 14:40 Urine,Catheterized Urine Culture - Final No Growth (<1,000 CFU/ML) Most Recent Lab Values WBC 7.0 K/uL (4.8-10.8) 08/15/18 06:50 RBC 4.40 Mil/uL (3.80-5.20) 08/15/18 06:50 Hgb 12.4 g/dL (12.0-16.0) 08/15/18 06:50 Hct 36.8 % (34.0-47.0) 08/15/18 06:50 MCV 83.8 fl (81.0-99.0) 08/15/18 06:50 MCH 28.2 pg (27.0-31.0) 08/15/18 06:50 MCHC 33.6 g/dL (33.0-37.0) 08/15/18 06:50 RDW 14.1 % (11.5-14.5) 08/15/18 06:50 Plt Count 232 K/uL (130-400) 08/15/18 06:50 MPV 8.0 fl (7.2-11.7) 08/15/18 06:50 Neut % (Auto) 63.6 % (50.0-75.0) 08/15/18 06:50 Lymph % (Auto) 28.0 % (20.0-40.0) 08/15/18 06:50 [place] % (Auto) 6.3 % (0.0-10.0) 08/15/18 06:50 Eos % (Auto) 1.5 % (0.0-4.0) 08/15/18 06:50 Baso % (Auto) 0.6 % (0.0-2.0) 08/15/18 06:50 Neut # (Auto) 4.5 K/uL (1.8-7.0) 08/15/18 06:50 Lymph # (Auto) 2.0 K/uL (1.0-4.3) 08/15/18 06:50 [place] # (Auto) 0.4 K/uL (0.0-0.8) 08/15/18 06:50 Eos # (Auto) 0.1 K/uL (0.0-0.7) 08/15/18 06:50 Baso # (Auto) 0.0 K/uL (0.0-0.2) 08/15/18 06:50 PT 12.0 Seconds (9.8-13.1) 08/14/18 14:13 INR 1.1 08/14/18 14:13 APTT 32.6 Seconds (25.6-37.1) 08/14/18 14:13 pO2 24 mm/Hg (30-55) L 08/14/18 14:15 VBG pH 7.37 (7.32-7.43) 08/14/18 14:15 VBG pCO2 50 mmHg (40-60) 08/14/18 14:15 VBG HCO3 25.5 mmol/L 08/14/18 14:15 VBG Total CO2 30.4 mmol/L (22-28) H 08/14/18 14:15 VBG O2 Sat (Calc) 48.6 % (40-65) 08/14/18 14:15 VBG Base Excess 2.7 mmol/L (0.0-2.0) H 08/14/18 14:15 VBG Potassium 4.8 mmol/L (3.6-5.2) 08/14/18 14:15 Sodium 139.0 mmol/L (132-148) 08/14/18 14:15 Chloride 107.0 mmol/L (98-107) 08/14/18 14:15 Glucose 117 mg/dL (65-105) H 08/14/18 14:15 Lactate 2.3 mmol/L (0.7-2.1) H 08/14/18 14:15 FiO2 21.0 % 08/14/18 14:15 Blood Gas Comments Lac=2.3 08/14/18 14:15 Crit Value Called To lupe Seth 08/14/18 14:15 Crit Value Called By 08/14/18 14:15 Crit Value Read Back Y 08/14/18 14:15 Blood Gas Notified Time 1421 08/14/18 14:15 Sodium 139 mmol/l (132-148) 08/15/18 06:50 Potassium 4.4 MMOL/L (3.6-5.0) 08/15/18 06:50 Chloride 102 mmol/L (98-107) 08/15/18 06:50 Carbon Dioxide 28 mmol/L (22-30) 08/15/18 06:50 Anion Gap 13 (10-20) 08/15/18 06:50 BUN 16 mg/dl (7-17) 08/15/18 06:50 Creatinine 0.8 mg/dl (0.7-1.2) 08/15/18 06:50 Est GFR ( Amer) > 60 08/15/18 06:50 Est GFR (Non-Af Amer) > 60 08/15/18 06:50 Random Glucose 113 mg/dL (65-105) H 08/15/18 06:50 Calcium 9.5 mg/dL (8.4-10.2) 08/15/18 06:50 Phosphorus 3.4 mg/dl (2.5-4.5) 08/14/18 14:13 Magnesium 2.0 MG/DL (1.6-2.3) 08/14/18 14:13 Total Bilirubin 0.4 mg/dl (0.2-1.3) 08/15/18 06:50 AST 24 U/L (14-36) 08/15/18 06:50 ALT 17 U/L (9-52) 08/15/18 06:50 Alkaline Phosphatase 66 U/L (38-126) 08/15/18 06:50 Total Protein 7.0 G/DL (6.3-8.2) 08/15/18 06:50 Albumin 3.8 g/dL (3.5-5.0) 08/15/18 06:50 Globulin 3.2 gm/dL (2.2-3.9) 08/15/18 06:50 Albumin/Globulin Ratio 1.2 (1.0-2.1) 08/15/18 06:50 Triglycerides 303 mg/DL (0-149) H D 08/15/18 06:50 Cholesterol 205 mg/dL (0-199) H 08/15/18 06:50 LDL Cholesterol Direct 102 mg/dL (0-129) 08/15/18 06:50 HDL Cholesterol 47 MG/DL (30-70) 08/15/18 06:50 Vitamin B12 764 pg/mL (239-931) 08/15/18 06:50 25-OH Vitamin D Total 23.2 NG/ML (30.0-100.0) L 08/15/18 06:50 Folate 13.9 ng/mL 08/14/18 14:13 Thyroxine (T4) 6.25 ug/dl (5.5-11.0) 08/15/18 06:50 TSH 3rd Generation 2.73 mIU/ML (0.46-4.68) 08/15/18 06:50 Venous Blood Potassium 4.8 mmol/L (3.6-5.2) 08/14/18 14:15 Urine Color Light yellow (YELLOW) 08/14/18 14:40 Urine Clarity Clear (Clear) 08/14/18 14:40 Urine pH 6.0 (5.0-8.0) 08/14/18 14:40 Ur Specific [place] 1.013 (1.003-1.030) 08/14/18 14:40 Urine Protein Negative mg/dL (NEGATIVE) 08/14/18 14:40 Urine Glucose (UA) Negative mg/dL (NEGATIVE) 08/14/18 14:40 Urine Ketones Trace mg/dL (NEGATIVE) 08/14/18 14:40 Urine Blood Negative (NEGATIVE) 08/14/18 14:40 Urine Nitrate Negative (NEGATIVE) 08/14/18 14:40 Urine Bilirubin Negative (NEGATIVE) 08/14/18 14:40 Urine Urobilinogen 0.2-1.0 mg/dL (0.2-1.0) 08/14/18 14:40 Ur Leukocyte Esterase Negative [place]/uL (Negative) 08/14/18 14:40 Urine RBC (Auto) 3 /hpf (0-3) 08/14/18 14:40 Urine Microscopic WBC 2 /hpf (0-5) 08/14/18 14:40 Ur Squamous Epith Cells 1 /hpf (0-5) 08/14/18 14:40 Urine Bacteria Rare (<OCC) 08/14/18 14:40 RPR Nonreactive (NONREACTIVE) 08/14/18 14:24 Discharge Exam - Head Exam Head Exam: NORMAL INSPECTION Discharge Plan - Follow Up Plan Condition: FAIR Disposition: DISCHARGE TO PSYCH HOSPITAL Instructions: Urinary Tract Infection, Adult (DC), Altered Mental Status (DC) Additional Instructions: follow up with Dr. Brewer 1 week Referrals: Giacomo Luogn MD [Medical Doctor] - Forest Brewer MD [Staff Provider] -
--- NOTE | 2018-08-18 13:20 | PQF ---
PROVIDER RESPONSE TEXT: Dementia with behavioral disturbance. REVIEWER QUERY TEXT: Altered Mental Status - Underlying Cause A mental status change is documented in the Medical Record. Please specify the underlying cause Such as: --Delirium --Dementia with behavioral disturbance --UTI --Dehydration -- Due to medication -- Cardiac condition please specify -- Electrolyte/metabolic imbalance please specify -- Infectious process please specify -- Neurologic condition please specify -- Psychiatric condition please specify -- Respiratory condition please specify -- Other, please specify The patient's Clinical Indicators include: PMH of dementia . Patient was not on her base line, with a gradual increasing of altered level of con sciousness that began for 2 weeks [employer] with no improvement and lack of appetite. Patient treated with Microbid for UTI 2 weeks ago without improvement, unknown if Pt took the complet e course of abx. Pt continue with urinary burning and pressure sensation, mild intensity pain 3:10.Sh e started 2nd course of abx over the past week. Psych: Delirium due to medical condition resolving, major neurocognitive disorder moderate Rx: Risperdal, Namenda, Rocephin, IVF Query created by: Daina Gupta on 08/17/2018 6:26 AM Electronically signed by: Forest Brewer MD 08/18/2018 1:18 PM
== END 2018-08-17 17:35 | DRG 884 ==
LOC: H.ER 13:33 → H.ERHOLD 14:50 → H.MEDSURG1 18:15
PROVIDERS: ADMIT Internal Medicine Pulmonary Disease; ATTEND Internal Medicine Pulmonary Disease
DX: F01.51 Vascular dementia, unspecified severity, with behavioral disturbance (principal); F05 Delirium due to known physiological condition; N39.0 Urinary tract infection, site not specified; E86.0 Dehydration; I25.10 Atherosclerotic heart disease of native coronary artery without angina pectoris; Z95.0 Presence of cardiac pacemaker; Z91.14 Patient's other noncompliance with medication regimen; I12.9 Hypertensive chronic kidney disease with stage 1 through stage 4 chronic kidney disease, or unspecified chronic kidney disease; N18.9 Chronic kidney disease, unspecified; K21.9 Gastro-esophageal reflux disease without esophagitis; E78.5 Hyperlipidemia, unspecified; E78.00 Pure hypercholesterolemia, unspecified; M19.90 Unspecified osteoarthritis, unspecified site; Z87.442 Personal history of urinary calculi

== ENCOUNTER 2018-08-17 14:20 | Inpatient (IN) | payer MEDICARE ==
[2018-08-17 17:52] VITALS: BMI 28.2
[2018-08-17] MEDS ORDERED: Magnesium Hydroxide Susp 30 ml UD PO PRN (18:28)
[2018-08-17] MEDS ORDERED: Alum-Mag Hydrox-Simethicone Susp (30 mL) PO PRN (18:28)
[2018-08-17] MEDS ORDERED: Bismuth Subsalicylate 262 mg/15 ml Sus (240 ml) PO PRN (18:28)
[2018-08-17 18:49] VITALS: RESP 18
--- NOTE | 2018-08-17 18:51 | PCM.BM ---
<ErnieCoral yatese E - Last Filed: 08/17/18 18:49> Treatment Plan Problems - Problems identified on initial assessmt Anger, Aggression and violent Behaviors Date Initiated: 08/17/18 Time Initiated: 18:50 Assessment reference: HP, NA Status: Active Ineffective Impulse Control Date Initiated: 08/17/18 Time Initiated: 18:52 Assessment reference: HP, NA Status: Active Falls Risk Date Initiated: 08/17/18 Time Initiated: 18:53 Assessment reference: HP, NA Status: Active Treatment assets and liabiliti Patient Assests: good support system, negotiates basic needs Patient Liabilities: live alone, medical problems, imparied memory - Milieu Protocol Maintain good personal hygiene: daily Encourage regular showers, daily Remind patient to perform daily oral care, daily Assist patient to perform ADL's Conduct patient checks and document Observation sheet: Q15 minutes Maintain personal safety: every shift Educate patient to report safety concerns to staff, every shift Monitor environment for contraband/sharps Medication safety: Monitor for expected outcome, potential side effects: every shift, Assess barriers to learning: every shift, Assess readiness for medication education: every shift <Polina Bae - Last Filed: 08/18/18 09:59> - Diagnosis (1) Unspecified psychosis Status: Acute Interventions: Medication management, Individual and group therapy, Psychoeducation 08/18/18 09:59 (2) Dementia Status: Acute Interventions: Medication management, Individual and group therapy, Psychoeducation 08/18/18 09:59
--- NOTE | 2018-08-18 08:30 | PCM.PSYCH ---
Initial Psychiatric Evaluation - Initial Psychiatric Evaluation Type of Admission: Voluntary Chief Complaint (in patient's own words): "I have memory problems." Patient's Reaction to Hospitalization: HPI: 83 yo female, with h/o Dementia, HTN, CAD, HLD, GERD, admitted w/ worsening memory, behavioral disturbances, mood lability and worsening paranoia. Patient currently oriented to self and "hospital." She does not know date or president. She reports that she has intermittent feelings of depression and anxiety, but denies currently feeling depressed/anxious. She continues to be paranoid and believes that some unknown people are trying to steal her belongings. She also reports that she does not feel safe in the hospital. She acknowledged that she has memory problems. She denies acute suicidal ideation/plan/intent; but does report that she feels like her father is calling her to join him (in ). She denies sleep/appetite disturbances. No HI. No current AH/VH. Case discussed w/ patients' son and health care proxy, Dr. Quintero. PMHx: Dementia, HTN, CAD, HLD, GERD PPHx: Patient was started on Risperdal 0.25 mg PO BID PRN on the medical unit; no other current psychiatric treatment ALL: Pineapple SHx: Lives alone, from [place]; denies drugs/etoh/cig use Current Medications: Active Medications Generic Name Dose Route Start Last Admin Trade Name Freq PRN Reason Stop Dose Admin Acetaminophen 650 mg 08/17/18 18:28 Tylenol 325mg Tab PO Q4 PRN Pain, moderate (4-7) Al Hydrox/Mg Hydrox/Simethicone 30 ml 08/17/18 18:28 Maalox Plus 30 Ml PO Q4 PRN Dyspepsia Amlodipine Besylate 5 mg 08/18/18 09:00 Norvasc PO DAILY [facility] Atorvastatin Calcium 40 mg 08/17/18 22:00 08/17/18 21:04 Lipitor PO 40 mg HS [facility] Administration Bismuth Subsalicylate 524 mg 08/17/18 18:28 Pepto-Bismol PO Q4 PRN Diarrhea Clopidogrel Bisulfate 75 mg 08/17/18 22:00 08/17/18 21:05 Plavix PO 75 mg HS [facility] Administration Lorazepam 0.5 mg 08/17/18 18:28 Ativan PO 08/31/18 18:29 HS PRN Insomnia Lorazepam 0.5 mg 08/17/18 18:28 Ativan PO 08/31/18 18:29 Q6 PRN Anixety/Agitation Losartan Potassium 100 mg 08/18/18 09:00 Cozaar PO DAILY [facility] Magnesium Hydroxide 30 ml 08/17/18 18:28 Milk Of Magnesia PO HS PRN Constipation Memantine 5 mg 08/18/18 09:00 Namenda PO DAILY [facility] Metoprolol Tartrate 50 mg 08/17/18 22:00 08/17/18 21:05 Lopressor PO 50 mg HS [facility] Administration Multivitamins/Minerals 1 tab 08/18/18 09:00 Therapeutic-M Tab PO DAILY [facility] Ondansetron HCl 4 mg 08/17/18 18:42 08/17/18 22:14 Zofran Tab PO 4 mg Q6H PRN Administration Nausea/Vomiting Pantoprazole Sodium 40 mg 08/18/18 09:00 Protonix Ec Tab PO DAILY [facility] Risperidone 0.25 mg 08/17/18 18:31 Risperdal Tab PO BID PRN Agitation Past Psychiatric History - Past Psychiatric History Pertinent Medical Hx (Current Medical&Sleep Prob, Allergies): Allergies Allergy/AdvReac Type Severity Reaction Status Date / Time pineapple AdvReac PAIN Verified 08/13/15 06:39 Atorvastatin Calcium [Lipitor] 40 mg PO HS 05/22/14 Clopidogrel [Plavix] 75 mg PO HS 05/22/14 Esomeprazole Magnesium [Nexium] 40 mg PO DAILY 05/22/14 Folic Acid/[place]amil[place]/Vit A/Vit [Pastillabret Barron] 1 tab PO DAILY 05/22/14 Amlodipine/Valsartan [Exforge 5-320 mg Tablet] 1 tab PO DAILY 03/15/15 Metoprolol Tartrate [Lopressor] 50 mg PO HS 03/15/15 Ondansetron [Zofran Tab] 4 mg PO Q6H PRN #10 tab 09/09/15 Losartan Potassium [Cozaar] 100 mg PO DAILY 08/17/18 Memantine [Namenda] 5 mg PO DAILY tab 08/17/18 Pantoprazole [Protonix] 40 mg PO DAILY 08/17/18 amLODIPine [Norvasc] 5 mg PO DAILY 08/17/18 risperiDONE [RisperDAL Tab] 0.25 mg PO BID PRN tab 08/17/18 Review of Systems - Psychiatric Psychiatric: As Per HPI, Anxiety, Behavioral Changes, Confusion, Depression, Difficulty Concentrating, Memory Loss, Mood Swings, Paranoia Mental Status Examination - Personal Presentation Personal Presentation: Looks stated age - Affect Affect: Constricted - Motor Activity Motor Activity: Calm - Reliability in Providing Information Reliability in Providing Information: Poor, due to cognitve impairment - Speech Speech: Coherent - Mood Mood: Neutral - Formal Thought Process Formal Thought Process: Paranoia, Loosening of associations, Circumstantial - Hallucinations/Delusions Additional comments: Denies acute AH/VH - Obsessions/Compulsions Obsessions: No Compulsions: No - Cognitive Functions Orientation: Person, Place ("Hospital") Sensorium: Alert Attention/Concentration: Easily distracted Estimate of Intelligence: Average Judgement: Imparied, as evidence by: Poor judgement, Imparied, as evidence by: Lack of insight into illness Memory: Recent impaired, as evidence by: Inability to recall events of the day, Recent imparied as evidence by:Inability to complete 3/3 object recall, Remote impaired as evidenced by: Inability to recall sig life events, Remote impaired as evidenced by: Inability to recall historical events - Risk Risk: Diminished functioning - Strength & Assets Inventory Strength & Assets Inventory: Family support - Limitations Limitations: Living alone, Decreased memory, recent DSM 5 DX - DSM 5 DSM 5 Diagnosis: Dementia with behavioral disturbances; Psychosis NOS - Recommended/Plan of Treatment Treatment Recommendations and Plan of Treatment: Dementia with behavioral disturbances; Psychosis NOS -Admit to psychiatry unit -Start Risperdal 0.5 mg PO Daily@1700 -Continue Namenda -Medicine consult -Psychology consult -Individual and group therapy -Psychoeducation -Case discussed w/ patient's son, Dr. Quintero -Disposition planning- patient will likely need assisted placement when she is psychiatrically stable Projected ELOS: 5-10 days Discharge Plan and Discharge Criteria: Discharge when patient is psychiatrically stable - Smoking Cessation Smoking Cessation Initiated: No Reason for not providing: Not indicated
[2018-08-18] MEDS ORDERED: Pantoprazole 40 mg EC Tab PO SCH ×2 (09:00)
[2018-08-18] MEDS ORDERED: Multivitamin With Minerals Tab PO SCH (09:00)
--- NOTE | 2018-08-18 15:41 | PCM.BM ---
Treatment Plan Problems - Problems identified on initial assessmt Anger, Aggression and violent Behaviors Date Initiated: 08/17/18 Time Initiated: 18:50 Assessment reference: HP, NA Status: Active Ineffective Impulse Control Date Initiated: 08/17/18 Time Initiated: 18:52 Assessment reference: HP, NA Status: Active Falls Risk Date Initiated: 08/17/18 Time Initiated: 18:53 Assessment reference: HP, NA Status: Active knowledge defficit/hypertention Date Initiated: 08/18/18 Time Initiated: 15:39 Assessment reference: HP, NA Status: Monitor Priority: 8 Treatment assets and liabiliti Patient Assests: good support system, negotiates basic needs Patient Liabilities: live alone, medical problems, imparied memory - Milieu Protocol Maintain good personal hygiene: daily Encourage regular showers, daily Remind patient to perform daily oral care, daily Assist patient to perform ADL's Conduct patient checks and document Observation sheet: Q15 minutes Maintain personal safety: every shift Educate patient to report safety concerns to staff, every shift Monitor environment for contraband/sharps Medication safety: Monitor for expected outcome, potential side effects: every shift, Assess barriers to learning: every shift, Assess readiness for medication education: every shift Milieu Narrative: Dementia with behavioral disturbances; Psychosis NOS -Admit to psychiatry unit -Start Risperdal 0.5 mg PO Daily@1700 -Continue Namenda -Medicine consult -Psychology consult -Individual and group therapy -Psychoeducation -Case discussed w/ patient's son, Dr. Quintero -Disposition planning- patient will likely need senior care placement when she is psychiatrically stable Discharge/Continuing Care - Treatment Team Participation Patient/Family/SO Statement: Dementia with behavioral disturbances; Psychosis NOS -Admit to psychiatry unit -Start Risperdal 0.5 mg PO Daily@1700 -Continue Namenda -Medicine consult -Psychology consult -Individual and group therapy -Psychoeducation -Case discussed w/ patient's son, Dr. Quintero -Disposition planning- patient will likely need senior care placement when she is psychiatrically stable
[2018-08-18 16:06] VITALS: TEMP 98.4
[2018-08-18 16:16] VITALS: BP 129/64; PULSE 67
[2018-08-18] MEDS ORDERED: Risperidone M tab 0.5MG PO SCH (17:00)
--- NOTE | 2018-08-18 17:07 | CP.PCM.CON ---
History of Present Illness - History of Present Illness History of Present Illness: Internal medicine consult. 83 y/o F, with PMHx: Dementia, HTN, CAD, E Reflux, Dyslipidemia, admitted to [facility], from MED-SURG floor to Geropsch unit on 08/17/18 to continue Phychiatic Tx for Dementia with behavioral disturbance and Psychosis NOS. Pt had previous admission to hospital on 08/04/18 with increased level of disorientation and paranoid ideation, There after, Pt was seen by Neurology and Psychiatric consultants who recommended to be admitted to Phychiatric unit for further management of her change in mental medical condition. Review of Systems - Review of Systems Systems not reviewed;Unavailable: Acuity of Condition, Dementia Past Patient History - Tetanus Immunizations Tetanus Immunization: Unknown - Past Medical History & Family History Past Medical History?: Yes Pertinent Family History: Sister PPM, Father of Heart disease, Mother of Renal Failure, Brother due to Alzheimer complications. - Past Social History Smoking Status: Never Smoked Alcohol: None Drugs: Denies Home Situation {Lives}: Alone - CARDIAC Hx Cardiac Disorders: Yes Hx Cardia Arrhythmia: Yes Hx Hypercholesterolemia: Yes Hx Hypertension: Yes Hx Pacemaker: Yes - PULMONARY Hx Respiratory Disorders: No - NEUROLOGICAL Hx Neurological Disorder: Yes Hx Dementia: Yes - HEENT Hx HEENT Problems: No - RENAL Hx Chronic Kidney Disease: Yes - ENDOCRINE/METABOLIC Hx Endocrine Disorders: No - HEMATOLOGICAL/ONCOLOGICAL Hx Blood Disorders: No Hx Human Immunodeficiency Virus (HIV): No - INTEGUMENTARY Hx Dermatological Problems: No - MUSCULOSKELETAL/RHEUMATOLOGICAL Hx Falls: No - GASTROINTESTINAL Hx Gastrointestinal Disorders: Yes Hx Gastritis: Yes - GENITOURINARY/GYNECOLOGICAL Hx Genitourinary Disorders: No - PSYCHIATRIC Hx Substance Use: No - SURGICAL HISTORY Hx Surgeries: Yes Hx Cholecystectomy: Yes - ANESTHESIA Hx Anesthesia: Yes Hx Anesthesia Reactions: No Hx Malignant Hyperthermia: No Meds Allergies/Adverse Reactions: Allergies Allergy/AdvReac Type Severity Reaction Status Date / Time pineapple AdvReac PAIN Verified 08/13/15 06:39 - Medications Medications: Current Medications Acetaminophen (Tylenol 325mg Tab) 650 mg PO Q4 PRN PRN Reason: Pain, moderate (4-7) Al Hydrox/Mg Hydrox/Simethicone (Maalox Plus 30 Ml) 30 ml PO Q4 PRN PRN Reason: Dyspepsia Amlodipine Besylate (Norvasc) 5 mg PO DAILY [facility] Last Admin: 08/18/18 08:37 Dose: 5 mg Atorvastatin Calcium (Lipitor) 40 mg PO HS [facility] Last Admin: 08/17/18 21:04 Dose: 40 mg Bismuth Subsalicylate (Pepto-Bismol) 524 mg PO Q4 PRN PRN Reason: Diarrhea Clopidogrel Bisulfate (Plavix) 75 mg PO HS [facility] Last Admin: 08/17/18 21:05 Dose: 75 mg Lorazepam (Ativan) 0.5 mg PO HS PRN PRN Reason: Insomnia Stop: 08/31/18 18:29 Lorazepam (Ativan) 0.5 mg PO Q6 PRN PRN Reason: Anixety/Agitation Stop: 08/31/18 18:29 Losartan Potassium (Cozaar) 100 mg PO DAILY [facility] Last Admin: 08/18/18 08:36 Dose: 100 mg Magnesium Hydroxide (Milk Of Magnesia) 30 ml PO HS PRN PRN Reason: Constipation Memantine (Namenda) 5 mg PO DAILY [facility] Last Admin: 08/18/18 08:38 Dose: 5 mg Metoprolol Tartrate (Lopressor) 50 mg PO HS [facility] Last Admin: 08/17/18 21:05 Dose: 50 mg Multivitamins/Minerals (Therapeutic-M Tab) 1 tab PO DAILY [facility] Last Admin: 08/18/18 08:37 Dose: 1 tab Ondansetron HCl (Zofran Tab) 4 mg PO Q6H PRN PRN Reason: Nausea/Vomiting Last Admin: 08/17/18 22:14 Dose: 4 mg Pantoprazole Sodium (Protonix Ec Tab) 40 mg PO DAILY [facility] Last Admin: 08/18/18 08:37 Dose: 40 mg Risperidone (Risperdal Tab) 0.25 mg PO BID PRN PRN Reason: Agitation Risperidone (Risperdal M-Tab) 0.5 mg PO DAILY@1700 [facility] Last Admin: 08/18/18 16:45 Dose: 0.5 mg Physical Exam - Constitutional Appears: Agitated (at times), Confused - Head Exam Head Exam: NORMAL INSPECTION - Eye Exam Eye Exam: PERRL - ENT Exam ENT Exam: Normal Exam - Neck Exam Neck exam: Positive for: Normal Inspection - Cardiovascular Exam Cardiovascular Exam: REGULAR RHYTHM - GI/Abdominal Exam GI & Abdominal Exam: Normal Bowel Sounds, Soft - Extremities Exam Extremities exam: Positive for: normal inspection - Back Exam Back exam: NORMAL INSPECTION - Neurological Exam Additional comments: Ox1, confused, forgetful, no focal motor/sensory deficit. - Psychiatric Exam Psychiatric exam: Anxious - Skin Skin Exam: Warm Results - Vital Signs Recent Vital Signs: Last Vital Signs Temp 98.4 F 08/18/18 16:04 Pulse 67 08/18/18 16:04 Resp 18 08/18/18 16:04 BP 129/64 08/18/18 16:04 Pulse Ox reviewed J.P. Assessment & Plan (1) Hypertension Status: Chronic Priority: Medium (2) CAD (coronary artery disease) Status: Chronic Priority: Medium (3) Pacemaker Status: Chronic Priority: Medium (4) High cholesterol Status: Chronic Priority: High (5) Dementia Status: Acute Priority: High - Assessment and Plan (Free Text) Plan: Continue Cozaar, Norvasc, Lopressor, Plavix, Lipitor, Protonix and rest of tx. - Date & Time Date: 08/18/18 Time: 09:50
[2018-08-18 19:43] LABS: HEMOGLOBIN 12.1 g/dL (12.0-16.0); MEAN CORPUSCULAR HEMOGLOBIN 27.5 pg (27.0-31.0); MEAN CORPUSCULAR HGB CONC 32.7 g/dL (33.0-37.0); RBC 4.4 Mil/uL (3.80-5.20); RED CELL DISTRIBUTION WIDTH 14.3 % (11.5-14.5); WHITE BLOOD COUNT 9.8 K/uL (4.8-10.8)
[2018-08-18 19:55] LABS: IRON 70 ug/dL (37-170)
[2018-08-18 20:00] LABS: ALB/GLOB RATIO 1.2 (1.0-2.1); ALBUMIN 3.8 g/dL (3.5-5.0); CALCIUM 9.5 mg/dL (8.4-10.2)
[2018-08-18 20:06] LABS: % IRON SATURATION 23 % (20-55); TOTAL IRON BINDING CAPACITY 311 ug/dL (250-450)
--- NOTE | 2018-08-18 20:35 | PCM.RRT ---
PERSONAL CARE ATTENDANT Nurse Assessment - Situation Location: [address] [place] [address] Room Number: 305 PERSONAL CARE ATTENDANT Reason for Call: Hypotension PERSONAL CARE ATTENDANT Called By: RN - IV IV Inserted during PERSONAL CARE ATTENDANT?: No - Respiratory Oxygen Delivery Method: Nasal Cannula Received Nebulizer Treatments: No Was the Patient Ventilated with Bag/Mask 100% O2?: No Secretions Suctioned?: No Was the Patient Intubated?: No Was the Patient Placed on a Ventilator?: No - Vital Signs Vital Signs: Rapid Response Vital Sign Blood Pressure 92/56 Pulse Rate 78 Respiratory Rate 18 Temperature 98.2 F Oxygen Saturation 95 - Time PERSONAL CARE ATTENDANT Ended Time PERSONAL CARE ATTENDANT Ended: 19:35 - Vital Signs at end of PERSONAL CARE ATTENDANT Vital Signs at end of PERSONAL CARE ATTENDANT: Rapid Response End Vital Sign Blood Pressure 112/70 Pulse Rate 72 Respiratory Rate 16 Temperature 98.2 F O2 Sat by Pulse Oximetry 98 I.Reason for PERSONAL CARE ATTENDANT - A) Acute Change in Patient: Subjective: PERSONAL CARE ATTENDANT Start time: 1928 PERSONAL CARE ATTENDANT Arrival: 1929 S: PERSONAL CARE ATTENDANT called by RN as pt had brief LOC for <1min while getting blood drawn. Pt was sitting in chair and did not fall at all. Pt woke up and was slightly lethargic but no confusion. Denies chest pain or sob. Pt's son, Dr. Quintero, at patients side and corroborates history. O: Vitals: T 98.7, BP 85/60, HR 80, O2 sat 98 on RM air General: Elderly women seen sitting in chair, no acute distress noted, Awake, Alert and oriented x3 Head: Atraumatic Cardio: RRR, no murmurs, no JVD Lungs: CTABL Extremities: No pedal edema, Strong radial and DP pulse, good capillary refill Neuro: No facial droop or slurred speech, no focal motor or sensory defects Repeat BP: 96/75 HR 82, O2 Sat 99 on RM air A/P: Pt is an 83 yo female Dementia, HTN, CAD, E Reflux, HLD, admitted to [facility], from MED-SURG floor to Geropsch unit on 08/17/18 to continue Psychiatric Tx for Dementia with behavioral disturbance and Psychosis. Rapid response called as patient had brief syncopal episode and found to have low blood pressure. -Pt transferred to ED for acute management -Endorsed to Dr. Ariza, ED Attending Presents for PERSONAL CARE ATTENDANT: Dr. Payne, Dr. Thomas, and Tipple Repairer (Kaitlin Little, PGY2 resident) PERSONAL CARE ATTENDANT end time: 1938
--- NOTE | 2018-08-19 09:18 | PCM.PYCHDC ---
Mental Status Examination - Mental Status Examination Orientation: Person, Place Memory: Impaired Formal Thought Process: Paranoia Suicidal Ideation: No Current Homicidal Ideation?: No Discharge Summary - Discharge Note Reason for Hospitalization: HPI: 83 yo female, with h/o Dementia, HTN, CAD, HLD, GERD, admitted w/ worsening memory, behavioral disturbances, mood lability and worsening paranoia. Patient currently oriented to self and "hospital." She does not know date or president. She reports that she has intermittent feelings of depression and anxiety, but denies currently feeling depressed/anxious. She continues to be paranoid and believes that some unknown people are trying to steal her belongings. She also reports that she does not feel safe in the hospital. She acknowledged that she has memory problems. She denies acute suicidal ideation/plan/intent; but does report that she feels like her father is calling her to join him (in ). She denies sleep/appetite disturbances. No HI. No current AH/VH. Case discussed w/ patients' son and health care proxy, Dr. Quintero. PMHx: Dementia, HTN, CAD, HLD, GERD PPHx: Patient was started on Risperdal 0.25 mg PO BID PRN on the medical unit; no other current psychiatric treatment ALL: Pineapple SHx: Lives alone, from [place]; denies drugs/etoh/cig use Laboratory Data: Abnormal Lab Results 08/18/18 08/18/18 08/18/18 19:20 19:20 19:20 WBC 9.8 RBC 4.40 Hgb 12.1 Hct 37.0 MCV 84.0 MCH 27.5 MCHC 32.7 L RDW 14.3 Plt Count 262 Sodium 136 Potassium 3.9 Chloride 98 Carbon Dioxide 26 Anion Gap 16 BUN 24 H Creatinine 1.1 Est GFR ( Amer) 57 Est GFR (Non-Af Amer) 47 POC Glucose (mg/dL) Random Glucose 149 H Calcium 9.5 Iron TIBC % Saturation Ferritin 127.0 Total Bilirubin 0.5 AST 30 ALT 26 Alkaline Phosphatase 60 Total Protein 7.0 Albumin 3.8 Globulin 3.2 Albumin/Globulin Ratio 1.2 Triglycerides 152 H D Cholesterol 194 LDL Cholesterol Direct 116 HDL Cholesterol 52 Vitamin B12 653 Free T4 1.12 Thyroxine (T4) 7.15 TSH 3rd Generation 6.87 H 02/28/19 02/28/19 19:20 19:27 WBC RBC Hgb Hct MCV MCH MCHC RDW Plt Count Sodium Potassium Chloride Carbon Dioxide Anion Gap BUN Creatinine Est GFR ( Amer) Est GFR (Non-Af Amer) POC Glucose (mg/dL) 154 H Random Glucose Calcium Iron 70 TIBC 311 % Saturation 23 Ferritin Total Bilirubin AST ALT Alkaline Phosphatase Total Protein Albumin Globulin Albumin/Globulin Ratio Triglycerides Cholesterol LDL Cholesterol Direct HDL Cholesterol Vitamin B12 Free T4 Thyroxine (T4) TSH 3rd Generation Consultations:: List each consultation separately and include: 1. Reason for request. 2. Findings. 3. Follow-up Consultations: Medicine consult Summary of Hospital Course include:: 1. Description of specific treatment plan utilized for patients during their course of treatmen. 2. Summarize the time-course for resolution of acute symptoms and/or regressed behaviors. 3. Describe issues identified and worked on during hospitalization. 4. Describe medication utilized. 5. Describe medical problems identified and treated. 6. Reassessment of suicide risk Summary of Hospital Course: Patient was discharged to the ER after an HOG COOLER was called for syncope. - Diagnosis (1) Unspecified psychosis Status: Acute (2) Dementia Status: Acute Priority: High - Final Diagnosis (DSM 5) DSM 5: Psychosis NOS; Dementia Disposition: Trans to Other Acute Care Hosp Follow-up Treatment Plan: Patient was discharged to the ER after an HOG COOLER was called for syncope. - Smoking Cessation Smoking Cessation Medication prescribed: No Reason for not providing: Not indicated - Antipsychotic Medications Pt discharged on 2 or more routine antipsychotic medications: No
[2018-08-19 13:26] LABS: FOLATE 16.8 ng/mL
== END 2018-08-18 19:30 | disposition short-term general hospital (02) | DRG 884 ==
LOC: H.STEP 17:52
PROVIDERS: ADMIT Psychiatry & Neurology Psychiatry; ATTEND Psychiatry & Neurology Psychiatry
PROC: GZHZZZZ Group Psychotherapy (ICD-10-PCS; principal; 2018-08-17)
PROC: GZ58ZZZ Individual Psychotherapy, Cognitive-Behavioral (ICD-10-PCS; 2018-08-17)
DX: F03.91 Unspecified dementia, unspecified severity, with behavioral disturbance (principal); F32.9 Major depressive disorder, single episode, unspecified; F41.9 Anxiety disorder, unspecified; I95.9 Hypotension, unspecified; I25.10 Atherosclerotic heart disease of native coronary artery without angina pectoris; Z95.0 Presence of cardiac pacemaker; I10 Essential (primary) hypertension; K21.9 Gastro-esophageal reflux disease without esophagitis; E78.5 Hyperlipidemia, unspecified; E78.00 Pure hypercholesterolemia, unspecified

== ENCOUNTER 2018-08-23 17:05 | Inpatient (IN) | payer MEDICARE ==
[2018-08-23 17:32] VITALS: BMI 24.4
[2018-08-23] MEDS ORDERED: Magnesium Hydroxide Susp 30 ml UD PO PRN (19:37)
[2018-08-23] MEDS ORDERED: Bismuth Subsalicylate 262 mg/15 ml Sus (240 ml) PO PRN (19:37)
[2018-08-23] MEDS ORDERED: Alum-Mag Hydrox-Simethicone Susp (30 mL) PO PRN (19:37)
--- NOTE | 2018-08-23 22:57 | PCM.BM ---
<Philippe Almanzar - Last Filed: 08/23/18 22:55> Treatment Plan Problems - Problems identified on initial assessmt Agitated/Aggressive Behavior Date Initiated: 08/23/18 Time Initiated: 19:30 Assessment reference: NA Status: Active Priority: 1 Ineffeective Impulse Control Date Initiated: 08/23/18 Time Initiated: 19:30 Assessment reference: NA Status: Active Priority: 2 Medication Nonadherence Date Initiated: 08/23/18 Time Initiated: 19:30 Assessment reference: NA Status: Active Priority: 3 Treatment assets and liabiliti Patient Assests: good support system, negotiates basic needs Patient Liabilities: medical problems, imparied memory - Milieu Protocol Maintain good personal hygiene: daily Encourage regular showers, daily Remind patient to perform daily oral care, daily Assist patient to perform ADL's Maintain personal safety: every shift Educate patient to report safety concerns to staff, every shift Monitor environment for contraband/sharps Medication safety: Monitor for expected outcome, potential side effects: every shift, Assess barriers to learning: every shift, Assess readiness for medication education: every shift <Polina Bae - Last Filed: 08/24/18 08:45> - Diagnosis (1) Dementia with behavioral disturbance Status: Acute Interventions: Medication management, Individual and group therapy, Psychoeducation 08/24/18 08:46 (2) Unspecified psychosis Status: Acute Interventions: Medication management, Individual and group therapy, Psychoeducation 08/24/18 08:46 <Jeannette Cardona - Last Filed: 08/24/18 16:10> Family Contact Family involvement: Family/SO is involved Family contact: Patient agrees to contact, Family has been contacted by patient, Telephone contact initiated by staff Family contact name: Dr. Yuniel Quintero Family contacted how many times per week?: 2 Discharge/Continuing Care - Education Needs Education Needs: Family Medication, Family Diagnosis/Disease Process, Family Coping Skills, Family Placement options, Family Community resources, Family Activities of Daily Living, Family Uses of Medical Equipment, Family Health Practices/Safety, Family Personal Hygiene/Grooming, Family Aftercare Safety Plan, Patient Medication, Patient Diagnosis/Disease Process, Patient Coping Skills, Patient Placement options, Patient Community resources, Patient Activities of Daily Living, Patient Uses of Medical Equipment, Patient Health Practices/Safety, Patient Personal Hygiene/Grooming, Patient Aftercare Safety Plan - Discharge Discharge Criteria: Tolerates medication w/o severe side effects, Free of jayjay tation, Normal sleep pattern, Ability to care for self, Reduction of target symptoms Discharge to:: Half-Way - Additional Comments 08/24/18 16:07 Pt discussed in team meeting. Pt observed to be asleep and unable to attend team meeting. Reason for admission reviewed and discussed. Collateral information obtained form son discussed. Please refer to SW Progress Note for additional information. Pt referred to 3[facility] secondary to increased agitation, irritability, and paranoid bx's. Pt is dx with dementia. Pt's medical and social issues reviewed and discussed. Pt's medications reviewed. Pt's son is Healthcare Proxy and attending MD spoke with son regarding treatment. Pt's son requesting intermediate project manager acre placement as pt cannot live alone and refuses assistance at home. SW to continue to follow case. - Treatment Team Participation Discussed with Family/SO: No (Discussed prior to tx meeting) Was Patient/Family/SO present at Treatment Team Meeting: No (Pt observed to be asleep)
[2018-08-24] MEDS: Pantoprazole 40 mg EC Tab PO SCH (08:21)
--- NOTE | 2018-08-24 08:48 | PCM.PSYCH ---
Initial Psychiatric Evaluation - Initial Psychiatric Evaluation Type of Admission: Voluntary Chief Complaint (in patient's own words): Behavioral Disturbances Patient's Reaction to Hospitalization: HPI: 83 yo female, with h/o Dementia, HTN, CAD, HLD, GERD, admitted w/ worsening memory, behavioral disturbances, mood lability and worsening paranoia. Patient currently oriented to self and "hospital." She reports that she has intermittent feelings of depression and anxiety, but denies currently feeling depressed/anxious. She denies sleep/appetite disturbances. No HI. No current AH/VH. Case discussed w/ patients' son and health care proxy, Dr. Quintero. PMHx: Dementia, HTN, CAD, HLD, GERD PPHx: Patient was on Risperdal 0.25 mg PO BID on the medical unit; admitted to [email or web address] for one day last week but was transferred to medicine due to syncopal episode ALL: Pineapple SHx: Lives alone, from [place]; denies drugs/etoh/cig use Current Medications: Active Medications Generic Name Dose Route Start Last Admin Trade Name Freq PRN Reason Stop Dose Admin Acetaminophen 650 mg 08/23/18 19:37 Tylenol 325mg Tab PO Q4 PRN Pain, moderate (4-7) Al Hydrox/Mg Hydrox/Simethicone 30 ml 08/23/18 19:37 Maalox Plus 30 Ml PO Q4 PRN Dyspepsia Atorvastatin Calcium 40 mg 08/24/18 22:00 Lipitor PO DAILY [facility] Bismuth Subsalicylate 524 mg 08/23/18 19:37 Pepto-Bismol PO Q4 PRN Diarrhea Clopidogrel Bisulfate 75 mg 08/24/18 22:00 Plavix PO DAILY [facility] Divalproex Sodium 125 mg 08/24/18 09:00 Depakote Sprinkles PO BID [facility] Lorazepam 0.5 mg 08/23/18 19:37 Ativan PO 09/06/18 19:38 HS PRN Insomnia Lorazepam 0.5 mg 08/23/18 19:37 Ativan PO 09/06/18 19:38 Q6 PRN Anixety/Agitation Losartan Potassium 100 mg 08/24/18 09:00 08/24/18 08:22 Cozaar PO 100 mg DAILY [facility] Administration Magnesium Hydroxide 30 ml 08/23/18 19:37 Milk Of Magnesia PO HS PRN Constipation Memantine 5 mg 08/24/18 09:00 08/24/18 08:21 Namenda PO 5 mg DAILY [facility] Administration Pantoprazole Sodium 40 mg 08/24/18 09:00 08/24/18 08:21 Protonix Ec Tab PO 40 mg DAILY [facility] Administration Risperidone 1 mg 08/24/18 17:00 Risperdal M-Tab PO DAILY@1700 [facility] Past Psychiatric History - Past Psychiatric History Previous Treatment History: Inpatient Pertinent Medical Hx (Current Medical&Sleep Prob, Allergies): Allergies Allergy/AdvReac Type Severity Reaction Status Date / Time pineapple AdvReac PAIN Verified 08/18/18 19:49 Atorvastatin Calcium [Lipitor] 40 mg PO HS 05/22/14 Clopidogrel [Plavix] 75 mg PO HS 05/22/14 Esomeprazole Magnesium [Nexium] 40 mg PO DAILY 05/22/14 Folic Acid/Kamilah/Vit A/Vit [[place]] 1 tab PO DAILY 05/22/14 Ondansetron [Zofran Tab] 4 mg PO Q6H PRN #10 tab 09/09/15 Losartan Potassium [Cozaar] 100 mg PO DAILY 08/17/18 Memantine [Namenda] 5 mg PO DAILY tab 08/17/18 Pantoprazole [Protonix EC Tab] 40 mg PO DAILY 08/17/18 amLODIPine [Norvasc] 5 mg PO DAILY 08/17/18 Acetaminophen [Tylenol 325mg tab] 650 mg PO Q4 PRN tab 08/23/18 Lactulose [Enulose] 10 gm PO DAILY PRN udc 08/23/18 Lidocaine 5% [Lidoderm] 1 ea TD DAILY patch 08/23/18 Sulfamethoxazole/Trimethoprim [Bactrim DS Tab] 1 tab PO Q12 tab 08/23/18 risperiDONE [RisperDAL Tab] 0.25 mg PO DAILY tab 08/23/18 risperiDONE [RisperDAL Tab] 0.5 mg PO DAILY@1700 tab 08/23/18 Review of Systems - Psychiatric Psychiatric: As Per HPI, Abnormal Sleep Pattern, Behavioral Changes, Change in Appetite, Difficulty Concentrating, Irritability, Memory Loss, Mood Swings Mental Status Examination - Personal Presentation Personal Presentation: Looks stated age - Affect Affect: Other (Labile) - Motor Activity Motor Activity: Calm - Reliability in Providing Information Reliability in Providing Information: Poor, due to cognitve impairment - Speech Speech: Irrelevant, Tangential - Mood Mood: Neutral - Formal Thought Process Formal Thought Process: Loosening of associations, Circumstantial - Hallucinations/Delusions Additional comments: Denies AH/VH - Obsessions/Compulsions Obsessions: No Compulsions: No - Cognitive Functions Orientation: Person, Place ("Hospital") Attention/Concentration: Easily distracted Judgement: Imparied, as evidence by: Poor judgement, Imparied, as evidence by: Lack of insight into illness Memory: Recent impaired, as evidence by: Inability to recall events of the day, Recent imparied as evidence by:Inability to complete 3/3 object recall, Remote impaired as evidenced by: Inability to recall sig life events, Remote impaired as evidenced by: Inability to recall historical events - Risk Risk: Diminished functioning - Strength & Assets Inventory Strength & Assets Inventory: Family support - Limitations Limitations: Living alone, Decreased memory, recent DSM 5 DX - DSM 5 DSM 5 Diagnosis: Major Neurocognitive Disorder w/ Behavioral Disturbances; Psychosis NOS - Recommended/Plan of Treatment Treatment Recommendations and Plan of Treatment: Major Neurocognitive Disorder with behavioral disturbances; Psychosis NOS -Admit to psychiatry unit -Increase Risperdal -Start Depakote -Continue Namenda -Medicine consult -Psychology consult -Individual and group therapy -Psychoeducation -Case discussed w/ patient's son, Dr. Quintero -Disposition planning- patient will likely need longterm placement when she is psychiatrically stable Projected ELOS: 7-10 days Discharge Plan and Discharge Criteria: Discharge patient when she is psychiatrically stable - Smoking Cessation Smoking Cessation Initiated: No Reason for not providing: Not indicated
[2018-08-24] MEDS: Divalproex 125 mg Sprinkle Capsule PO SCH ×2 (11:29→16:48)
--- NOTE | 2018-08-24 15:10 | CP.PCM.HP ---
History of Present Illness - History of Present Illness History of Present Illness: CC: AMS. 83 y/o F, PMHx. Dementia, HTN, CAD s/p Stent and PPM, dyslipidemia, E Reflux, Past Patient History - Tetanus Immunizations Tetanus Immunization: Unknown - Past Medical History & Family History Past Medical History?: Yes - Past Social History Smoking Status: Former Smoker - CARDIAC Hx Cardiac Disorders: Yes Hx Cardia Arrhythmia: Yes Hx Hypercholesterolemia: Yes Hx Hypertension: Yes Hx Pacemaker: Yes (left) - PULMONARY Hx Respiratory Disorders: No - NEUROLOGICAL Hx Neurological Disorder: Yes Hx Dementia: Yes Hx Syncope: Yes - HEENT Hx HEENT Problems: Yes Other/Comment: wears corrective glasses - RENAL Hx Chronic Kidney Disease: Yes Hx Kidney Stones: Yes - ENDOCRINE/METABOLIC Hx Endocrine Disorders: No - HEMATOLOGICAL/ONCOLOGICAL Hx Blood Disorders: No Hx Human Immunodeficiency Virus (HIV): No - INTEGUMENTARY Hx Dermatological Problems: No - MUSCULOSKELETAL/RHEUMATOLOGICAL Hx Musculoskeletal Disorders: Yes Hx Arthritis: Yes Hx Falls: No - GASTROINTESTINAL Hx Gastrointestinal Disorders: Yes Hx Gall Bladder Disease: Yes Hx Gastritis: Yes Hx Gastroesophageal Reflux: Yes - GENITOURINARY/GYNECOLOGICAL Hx Genitourinary Disorders: Yes Hx Urinary Tract Infection: Yes - PSYCHIATRIC Hx Anxiety: Yes Hx Substance Use: No - SURGICAL HISTORY Hx Surgeries: No Hx Cholecystectomy: Yes Hx Coronary Stent: Yes - ANESTHESIA Hx Anesthesia: Yes Hx Anesthesia Reactions: No Hx Malignant Hyperthermia: No Meds Allergies/Adverse Reactions: Allergies Allergy/AdvReac Type Severity Reaction Status Date / Time pineapple AdvReac PAIN Verified 08/18/18 19:49 Results - Vital Signs Recent Vital Signs: Last Vital Signs Temp 98 F 08/24/18 09:22 Pulse 91 H 08/24/18 09:22 Resp 20 08/24/18 09:22 BP 108/78 08/24/18 09:22 Pulse Ox
[2018-08-24] MEDS: Risperidone M tab 1 MG PO SCH (16:51)
--- NOTE | 2018-08-24 19:26 | CP.PCM.CON ---
History of Present Illness - History of Present Illness History of Present Illness: Internal Medicine consult for a 83 y/o F, Hx of HTN, CAD s/p Stent and PPM, Dyslipidemia, E Reflux. Pt Re-admitted to Geropsychiatric unit on to continue Tx for Dementia with behavioral disturbance. Initially on 08/14/18, Pt was admitted to Telemetry floor with primary DX of AMS, found with Major Neurocognitive disease disorder and Delirium by Neurology system sales consultant. On 08/18/18, Pt was admitted to Psychiatric unit as per Psychiatric recommendation and within 24 hrs Pt had a syncope and was sent to ER for evaluation and admitted to Telemetry floor. On 08/23/18, Pt condition was stable and again was transferred to Geropsychiatric unit to continue with course of Tx. No: Fever, chills, n/v/d, abdominal pain, CP, palpitations, SOB, cough, urinary symptoms, sick contact. Review of Systems - Review of Systems Systems not reviewed;Unavailable: Acuity of Condition, Dementia Past Patient History - Tetanus Immunizations Tetanus Immunization: Unknown - Past Medical History & Family History Past Medical History?: Yes - Past Social History Smoking Status: Former Smoker Alcohol: None Drugs: Denies Home Situation {Lives}: Alone - CARDIAC Hx Cardiac Disorders: Yes Hx Cardia Arrhythmia: Yes Hx Hypercholesterolemia: Yes Hx Hypertension: Yes Hx Pacemaker: Yes (left) - PULMONARY Hx Respiratory Disorders: No - NEUROLOGICAL Hx Neurological Disorder: Yes Hx Dementia: Yes Hx Syncope: Yes - HEENT Hx HEENT Problems: Yes Other/Comment: wears corrective glasses - RENAL Hx Chronic Kidney Disease: Yes Hx Kidney Stones: Yes - ENDOCRINE/METABOLIC Hx Endocrine Disorders: No - HEMATOLOGICAL/ONCOLOGICAL Hx Blood Disorders: No Hx Human Immunodeficiency Virus (HIV): No - INTEGUMENTARY Hx Dermatological Problems: No - MUSCULOSKELETAL/RHEUMATOLOGICAL Hx Musculoskeletal Disorders: Yes Hx Arthritis: Yes Hx Falls: No - GASTROINTESTINAL Hx Gastrointestinal Disorders: Yes Hx Gall Bladder Disease: Yes Hx Gastritis: Yes Hx Gastroesophageal Reflux: Yes - GENITOURINARY/GYNECOLOGICAL Hx Genitourinary Disorders: Yes Hx Urinary Tract Infection: Yes - PSYCHIATRIC Hx Anxiety: Yes Hx Substance Use: No - SURGICAL HISTORY Hx Surgeries: No Hx Cholecystectomy: Yes Hx Coronary Stent: Yes - ANESTHESIA Hx Anesthesia: Yes Hx Anesthesia Reactions: No Hx Malignant Hyperthermia: No Meds Allergies/Adverse Reactions: Allergies Allergy/AdvReac Type Severity Reaction Status Date / Time pineapple AdvReac PAIN Verified 08/18/18 19:49 - Medications Medications: Current Medications Acetaminophen (Tylenol 325mg Tab) 650 mg PO Q4 PRN PRN Reason: Pain, moderate (4-7) Al Hydrox/Mg Hydrox/Simethicone (Maalox Plus 30 Ml) 30 ml PO Q4 PRN PRN Reason: Dyspepsia Atorvastatin Calcium (Lipitor) 40 mg PO DAILY [facility] Bismuth Subsalicylate (Pepto-Bismol) 524 mg PO Q4 PRN PRN Reason: Diarrhea Clopidogrel Bisulfate (Plavix) 75 mg PO DAILY [facility] Divalproex Sodium (Depakote Sprinkles) 125 mg PO BID [facility] Last Admin: 08/24/18 16:48 Dose: 125 mg Lorazepam (Ativan) 0.5 mg PO HS PRN PRN Reason: Insomnia Stop: 09/06/18 19:38 Lorazepam (Ativan) 0.5 mg PO Q6 PRN PRN Reason: Anixety/Agitation Stop: 09/06/18 19:38 Losartan Potassium (Cozaar) 100 mg PO DAILY [facility] Last Admin: 08/24/18 08:22 Dose: 100 mg Magnesium Hydroxide (Milk Of Magnesia) 30 ml PO HS PRN PRN Reason: Constipation Memantine (Namenda) 5 mg PO DAILY [facility] Last Admin: 08/24/18 08:21 Dose: 5 mg Pantoprazole Sodium (Protonix Ec Tab) 40 mg PO DAILY [facility] Last Admin: 08/24/18 08:21 Dose: 40 mg Risperidone (Risperdal M-Tab) 1 mg PO DAILY@1700 [facility] Last Admin: 08/24/18 16:51 Dose: 1 mg Physical Exam - Constitutional Appears: Agitated, Confused, Chronically Ill - Head Exam Head Exam: NORMAL INSPECTION - Eye Exam Eye Exam: PERRL - ENT Exam ENT Exam: Normal Exam - Neck Exam Neck exam: Positive for: Normal Inspection - Respiratory Exam Respiratory Exam: NORMAL BREATHING PATTERN - Cardiovascular Exam Cardiovascular Exam: REGULAR RHYTHM - GI/Abdominal Exam GI & Abdominal Exam: Normal Bowel Sounds, Soft - Extremities Exam Extremities exam: Positive for: normal inspection - Back Exam Back exam: NORMAL INSPECTION - Neurological Exam Additional comments: Awake, Ox1 to self, forgetful, confused, no focal motor/sensory deficit. - Psychiatric Exam Psychiatric exam: Agitated (at times), Anxious - Skin Skin Exam: Warm Results - Vital Signs Recent Vital Signs: Last Vital Signs Temp 97.8 F 08/24/18 15:49 Pulse 77 08/24/18 15:49 Resp 18 08/24/18 15:49 BP 116/44 L 08/24/18 15:49 Pulse Ox reviewed Lyric Assessment & Plan (1) Hypertension Status: Chronic Priority: Medium (2) Pacemaker Status: Chronic Priority: Medium (3) CAD (coronary artery disease) Status: Chronic Priority: Medium (4) GERD (gastroesophageal reflux disease) Status: Chronic Priority: Medium (5) High cholesterol Status: Chronic Priority: High (6) Osteoarthritis Status: Chronic Priority: Medium (7) Dementia Status: Acute Priority: High - Assessment and Plan (Free Text) Plan: Continue Cozaar, Plavix, Lipitor, Protonix, Tylenol q 4 hrs prn and rest of Tx. Discussed with son, consider [facility] placement when psychiatrically stable - Date & Time Date: 08/24/18
[2018-08-25] MEDS: Pantoprazole 40 mg EC Tab PO SCH (08:31)
[2018-08-25] MEDS: Divalproex 125 mg Sprinkle Capsule PO SCH ×2 (08:32→16:25)
--- NOTE | 2018-08-25 10:00 | PCM.PYCHPN ---
Psychiatric Progress Note - Psychiatric Progress Note Patient seen today, length of contact: Pt evaluated, case discussed w/ team, chart reviewed Patient Chief Complaint: Behavioral Disturbances Problems Identified/Issues Discussed: Patient continues to be labile, irritable and easily agitated. No violence or aggression. No adverse effects to medications reported/observed. No AH/VH/SI/HI. Medication Change: No Medical Record Reviewed: Yes Consults ordered or reviewed: Medicine consult Mental Status Examination - Cognitive Function Orientation: Person, Place ("Hospital") Memory: Impaired Attention: Poor Concentration: Poor Association: Loose Fund of Knowledge: Poor Decription of patient's judgement and insights: Poor I/J - Mood Mood: Neutral - Affect Affect: Other (Labile) - Speech Speech: Loud - Formal Thought Process Formal Thought Process: Paranoia, Loosening of associations, Circumstantial Psychotic Thoughts and Behaviors: Denies AH/VH; +paranoia - Suicidal Ideation Suicidal Ideation: No - Homicidal Ideation Homicidal Ideation: No Goal/Treatment Plan - Goal/Treatment Plan Need for Continued Stay: Remain at risks for inpatient hospitalization, Severe functional impairment Progress Toward Problem(s) and Goals/Treatment Plan: Major Neurocognitive Disorder with behavioral disturbances; Psychosis NOS -Continue Risperdal -Continue Depakote -Continue Namenda -Medicine consult -Psychology consult -Individual and group therapy -Psychoeducation -Case discussed w/ patient's son, Dr. Quintero -Disposition planning
[2018-08-25] MEDS: Risperidone M tab 1 MG PO SCH (16:26)
--- NOTE | 2018-08-26 08:17 | PCM.PYCHPN ---
Psychiatric Progress Note - Psychiatric Progress Note Patient seen today, length of contact: Pt evaluated, case discussed w/ team, chart reviewed Patient Chief Complaint: Behavioral Disturbances Problems Identified/Issues Discussed: Patient is easily agitated, yelling and cursing at mortgage or loan underwriter this morning. She continues to be labile and has behavioral disturbances in the night. No violence or aggression. No adverse effects to medications reported/observed. No AH/VH/SI/HI. Medication Change: Yes (Increase Depakote; Change Risperdal to HS dosing) Medical Record Reviewed: Yes Consults ordered or reviewed: Medicine consult Mental Status Examination - Cognitive Function Orientation: Person, Place ("Hospital") Memory: Impaired Attention: Poor Concentration: Poor Association: Loose Fund of Knowledge: Poor Decription of patient's judgement and insights: Poor I/J - Mood Mood: Neutral - Affect Affect: Other (Labile) - Speech Speech: Loud - Formal Thought Process Formal Thought Process: Paranoia, Loosening of associations, Circumstantial Psychotic Thoughts and Behaviors: Denies AH/VH - Suicidal Ideation Suicidal Ideation: No - Homicidal Ideation Homicidal Ideation: No Goal/Treatment Plan - Goal/Treatment Plan Need for Continued Stay: Remain at risks for inpatient hospitalization, Severe functional impairment Progress Toward Problem(s) and Goals/Treatment Plan: Major Neurocognitive Disorder with behavioral disturbances; Psychosis NOS -Change Risperdal to HS dosing -Increase Depakote -Continue Namenda -Medicine consult -Psychology consult -Individual and group therapy -Psychoeducation -Case discussed w/ patient's son, Dr. Quintero -Disposition planning
[2018-08-26] MEDS: Divalproex 125 mg Sprinkle Capsule PO SCH ×2 (08:26→16:55)
[2018-08-26] MEDS: Pantoprazole 40 mg EC Tab PO SCH (08:26)
[2018-08-26] MEDS ORDERED: Risperidone M tab 1 MG PO SCH (22:00)
[2018-08-27] MEDS: Pantoprazole 40 mg EC Tab PO SCH (08:22)
[2018-08-27] MEDS: Divalproex 125 mg Sprinkle Capsule PO SCH ×2 (08:22→16:38)
[2018-08-27 10:21] LABS: BASO % 0.6 % (0.0-2.0); EOS # 0.2 K/uL (0.0-0.7); EOS % 2.7 % (0.0-4.0); HEMOGLOBIN 11.8 g/dL (12.0-16.0); LYMPH # 1.8 K/uL (1.0-4.3); LYMPH % 22.8 % (20.0-40.0); MEAN CELL VOLUME 83.6 fl (81.0-99.0); MEAN CORPUSCULAR HEMOGLOBIN 27.6 pg (27.0-31.0); MEAN PLATELET VOLUME 8.4 fl (7.2-11.7); MONO # 0.5 K/uL (0.0-0.8); MONO % 6.9 % (0.0-10.0); NEUT # 5.4 K/uL (1.8-7.0); RBC 4.29 Mil/uL (3.80-5.20); RED CELL DISTRIBUTION WIDTH 14.2 % (11.5-14.5)
--- NOTE | 2018-08-27 10:31 | PCM.PYCHPN ---
Psychiatric Progress Note - Psychiatric Progress Note Patient seen today, length of contact: Pt evaluated, case discussed w/ team, chart reviewed Patient Chief Complaint: Behavioral Disturbances Problems Identified/Issues Discussed: Patient continues to be easily agitated, yelling and curing at publications writer, making insulting comments. No violence or aggression. No adverse effects to medications reported/observed. No AH/VH/SI/HI. Medication Change: No Medical Record Reviewed: Yes Consults ordered or reviewed: Medicine consult Mental Status Examination - Cognitive Function Orientation: Person, Place ("Hospital") Memory: Impaired Attention: Poor Concentration: Poor Association: Loose Fund of Knowledge: Poor Decription of patient's judgement and insights: Poor I/J - Mood Mood: Neutral - Affect Affect: Other (Labile) - Speech Speech: Loud - Formal Thought Process Formal Thought Process: Paranoia, Loosening of associations, Circumstantial Psychotic Thoughts and Behaviors: Denies AH/VH - Suicidal Ideation Suicidal Ideation: No - Homicidal Ideation Homicidal Ideation: No Goal/Treatment Plan - Goal/Treatment Plan Need for Continued Stay: Remain at risks for inpatient hospitalization, Severe functional impairment Progress Toward Problem(s) and Goals/Treatment Plan: Major Neurocognitive Disorder with behavioral disturbances; Psychosis NOS -Continue Risperdal -Continue Depakote; will consider increasing dosage if patient continues to have mood lability -Continue Namenda -Medicine consult -Psychology consult -Individual and group therapy -Psychoeducation -Case discussed w/ patient's son, Dr. Quintero -Disposition planning
[2018-08-27 10:32] LABS: ALB/GLOB RATIO 1.2 (1.0-2.1); ALBUMIN 3.8 g/dL (3.5-5.0); CALCIUM 9.8 mg/dL (8.4-10.2)
[2018-08-27] MEDS: Risperidone M tab 0.5MG PO SCH ×2 (11:13→21:05)
--- NOTE | 2018-08-28 09:56 | PCM.PYCHPN ---
Psychiatric Progress Note - Psychiatric Progress Note Patient seen today, length of contact: Pt evaluated, case discussed w/ team, chart reviewed Patient Chief Complaint: Behavioral Disturbances Problems Identified/Issues Discussed: Patient is calmer and less irritable. She had improved sleep overnight. No violence or aggression. No adverse effects to medications reported/observed. No AH/VH/SI/HI. Medication Change: No Medical Record Reviewed: Yes Consults ordered or reviewed: Medicine consult Mental Status Examination - Cognitive Function Orientation: Person, Place ("Hospital") Memory: Impaired Attention: Poor Concentration: Poor Association: Loose Fund of Knowledge: Poor Decription of patient's judgement and insights: Poor I/J - Mood Mood: Neutral - Affect Affect: Other (Labile) - Speech Speech: Loud - Formal Thought Process Formal Thought Process: Loosening of associations, Circumstantial Psychotic Thoughts and Behaviors: Denies AH/VH - Suicidal Ideation Suicidal Ideation: No - Homicidal Ideation Homicidal Ideation: No Goal/Treatment Plan - Goal/Treatment Plan Need for Continued Stay: Remain at risks for inpatient hospitalization, Severe functional impairment Progress Toward Problem(s) and Goals/Treatment Plan: Major Neurocognitive Disorder with behavioral disturbances; Psychosis NOS -Continue Risperdal -Continue Depakote -Continue Namenda -Medicine consult -Psychology consult -Individual and group therapy -Psychoeducation -Case discussed w/ patient's son, Dr. Quintero -Disposition planning
[2018-08-28] MEDS: Divalproex 125 mg Sprinkle Capsule PO SCH ×2 (13:04→19:11)
[2018-08-28] MEDS: Pantoprazole 40 mg EC Tab PO SCH (13:06)
[2018-08-28] MEDS: Risperidone M tab 0.5MG PO SCH ×2 (13:12→21:01)
[2018-08-29 07:52] LABS: EOS # 0.2 K/uL (0.0-0.7); EOS % 4.1 % (0.0-4.0); HEMOGLOBIN 11.2 g/dL (12.0-16.0); LYMPH # 1.6 K/uL (1.0-4.3); LYMPH % 34.3 % (20.0-40.0); MEAN CELL VOLUME 83.3 fl (81.0-99.0); MEAN CORPUSCULAR HEMOGLOBIN 28.1 pg (27.0-31.0); MEAN CORPUSCULAR HGB CONC 33.8 g/dL (33.0-37.0); MEAN PLATELET VOLUME 7.8 fl (7.2-11.7); MONO # 0.3 K/uL (0.0-0.8); MONO % 7.3 % (0.0-10.0); NEUT # 2.4 K/uL (1.8-7.0); NEUT % 53.3 % (50.0-75.0); RBC 3.99 Mil/uL (3.80-5.20); RED CELL DISTRIBUTION WIDTH 14.1 % (11.5-14.5); WHITE BLOOD COUNT 4.6 K/uL (4.8-10.8)
[2018-08-29] MEDS: Divalproex 125 mg Sprinkle Capsule PO SCH ×2 (08:03→17:35)
[2018-08-29] MEDS: Risperidone M tab 0.5MG PO SCH ×2 (08:04→21:09)
[2018-08-29] MEDS: Pantoprazole 40 mg EC Tab PO SCH (08:10)
--- NOTE | 2018-08-29 08:20 | PCM.PYCHPN ---
Psychiatric Progress Note - Psychiatric Progress Note Patient seen today, length of contact: Pt evaluated, case discussed w/ team, chart reviewed Patient Chief Complaint: Behavioral Disturbances Problems Identified/Issues Discussed: Patient is less agitated, now willing to speak with advertising copywriter. She is calmer and less irritable. She continues to have poor insight/judgment due to chronic neurocognitive impairment. No violence or aggression. No adverse effects to medications reported/observed. No AH/VH/SI/HI. She denies acute paranoia. Medication Change: No Medical Record Reviewed: Yes Consults ordered or reviewed: Medicine consult Mental Status Examination - Cognitive Function Orientation: Person, Place ("Hospital") Memory: Impaired Attention: Poor Concentration: Poor Association: Loose Fund of Knowledge: Poor Decription of patient's judgement and insights: Poor I/J - Mood Mood: Neutral - Affect Affect: Other (Labile) - Speech Speech: Appropriate - Formal Thought Process Formal Thought Process: Loosening of associations, Circumstantial Psychotic Thoughts and Behaviors: Denies AH/VH - Suicidal Ideation Suicidal Ideation: No - Homicidal Ideation Homicidal Ideation: No Goal/Treatment Plan - Goal/Treatment Plan Need for Continued Stay: Remain at risks for inpatient hospitalization, Severe functional impairment Progress Toward Problem(s) and Goals/Treatment Plan: Major Neurocognitive Disorder with behavioral disturbances; Psychosis NOS -Continue Risperdal -Continue Depakote -Continue Namenda -Medicine consult -Psychology consult -Individual and group therapy -Psychoeducation -Case discussed w/ patient's son, Dr. Quintero -Disposition planning
[2018-08-29 08:21] LABS: ALB/GLOB RATIO 1.1 (1.0-2.1); ALBUMIN 3.3 g/dL (3.5-5.0); CALCIUM 9.5 mg/dL (8.4-10.2)
--- NOTE | 2018-08-29 14:46 | CP.PCM.PN ---
Subjective - Date & Time of Evaluation Date of Evaluation: 08/29/18 Time of Evaluation: 10:30 - Subjective Subjective: F/U Internal Medicine consult. Pt confused, emotional crying. Objective - Vital Signs/Intake and Output Vital Signs (last 24 hours): Temp Pulse Resp BP Pulse Ox 98.1 F 92 H 18 134/84 08/29/18 05:47 08/29/18 08:03 08/29/18 05:47 08/29/18 08:03 - Medications Medications: Current Medications Acetaminophen (Tylenol 325mg Tab) 650 mg PO Q4 PRN PRN Reason: Pain, moderate (4-7) Al Hydrox/Mg Hydrox/Simethicone (Maalox Plus 30 Ml) 30 ml PO Q4 PRN PRN Reason: Dyspepsia Atorvastatin Calcium (Lipitor) 40 mg PO DAILY [facility] Last Admin: 08/29/18 08:04 Dose: 40 mg Bismuth Subsalicylate (Pepto-Bismol) 524 mg PO Q4 PRN PRN Reason: Diarrhea Clopidogrel Bisulfate (Plavix) 75 mg PO DAILY [facility] Last Admin: 08/29/18 08:04 Dose: 75 mg Diphenhydramine HCl (Benadryl) 25 mg PO HS PRN PRN Reason: Insomnia Divalproex Sodium (Depakote Sprinkles) 250 mg PO BID [facility] Last Admin: 08/29/18 08:03 Dose: 250 mg Lorazepam (Ativan) 0.5 mg PO HS PRN PRN Reason: Insomnia Stop: 09/06/18 19:38 Lorazepam (Ativan) 0.5 mg PO Q6 PRN PRN Reason: Anixety/Agitation Stop: 09/06/18 19:38 Last Admin: 08/27/18 09:23 Dose: 0.5 mg Losartan Potassium (Cozaar) 100 mg PO DAILY [facility] Last Admin: 08/29/18 08:03 Dose: 100 mg Magnesium Hydroxide (Milk Of Magnesia) 30 ml PO HS PRN PRN Reason: Constipation Memantine (Namenda) 5 mg PO DAILY [facility] Last Admin: 08/29/18 08:04 Dose: 5 mg Pantoprazole Sodium (Protonix Ec Tab) 40 mg PO DAILY [facility] Last Admin: 08/29/18 08:10 Dose: 40 mg Risperidone (Risperdal M-Tab) 0.5 mg PO Q12 [facility] Last Admin: 08/29/18 08:04 Dose: 0.5 mg - Labs Labs: 08/29/18 07:00 08/29/18 07:00 - Constitutional Appears: Confused, Chronically Ill - Head Exam Head Exam: NORMAL INSPECTION - Eye Exam Eye Exam: PERRL - ENT Exam ENT Exam: Normal Exam - Neck Exam Neck Exam: Normal Inspection - Respiratory Exam Respiratory Exam: NORMAL BREATHING PATTERN - Cardiovascular Exam Cardiovascular Exam: REGULAR RHYTHM - GI/Abdominal Exam GI & Abdominal Exam: Soft, Normal Bowel Sounds - Extremities Exam Extremities Exam: Normal Inspection - Back Exam Back Exam: NORMAL INSPECTION - Neurological Exam Neurological Exam: Abnormal Gait, Awake Additional comments: Confused, forgetful, disoriented. No focal motor/sensory deficit. - Psychiatric Exam Psychiatric exam: Agitated (at times) - Skin Skin Exam: Normal Color, Warm Assessment and Plan (1) Hypertension Status: Chronic (2) Pacemaker Status: Chronic (3) CAD (coronary artery disease) Status: Chronic (4) GERD (gastroesophageal reflux disease) Status: Chronic (5) High cholesterol Status: Chronic (6) Osteoarthritis Status: Chronic (7) Dementia Status: Acute - Assessment and Plan (Free Text) Plan: BUN and Creatinine improved, increase fluid po for dehydration, Renal U-S.
[2018-08-30 07:04] LABS: EOS # 0.2 K/uL (0.0-0.7); EOS % 3.6 % (0.0-4.0); HEMOGLOBIN 11.9 g/dL (12.0-16.0); LYMPH # 1.8 K/uL (1.0-4.3); LYMPH % 37.6 % (20.0-40.0); MEAN CELL VOLUME 83.6 fl (81.0-99.0); MEAN CORPUSCULAR HEMOGLOBIN 27.2 pg (27.0-31.0); MEAN CORPUSCULAR HGB CONC 32.5 g/dL (33.0-37.0); MEAN PLATELET VOLUME 7.4 fl (7.2-11.7); MONO # 0.3 K/uL (0.0-0.8); MONO % 6.9 % (0.0-10.0); NEUT # 2.4 K/uL (1.8-7.0); NEUT % 50.9 % (50.0-75.0); NRBC % 0.1 % (0.0-0.0); RBC 4.37 Mil/uL (3.80-5.20); WHITE BLOOD COUNT 4.7 K/uL (4.8-10.8)
[2018-08-30 07:24] LABS: ALB/GLOB RATIO 1.1 (1.0-2.1); ALBUMIN 3.6 g/dL (3.5-5.0); CALCIUM 9.6 mg/dL (8.4-10.2)
[2018-08-30] MEDS: Pantoprazole 40 mg EC Tab PO SCH (08:30)
[2018-08-30] MEDS: Divalproex 125 mg Sprinkle Capsule PO SCH ×2 (08:31→18:49)
[2018-08-30] MEDS: Risperidone M tab 0.5MG PO SCH ×2 (08:31→21:23)
--- NOTE | 2018-08-30 09:00 | PCM.PYCHPN ---
Psychiatric Progress Note - Psychiatric Progress Note Patient seen today, length of contact: Pt evaluated, case discussed w/ team, chart reviewed Patient Chief Complaint: Behavioral Disturbances Problems Identified/Issues Discussed: Patient continues to have periods of mood lability and irritability. She is currently calm and cooperative with manual writer. She denies acute paranoia. She continues to have poor insight/judgment due to chronic neurocognitive impairment. No violence or aggression. No adverse effects to medications reported/observed. No AH/VH/SI/HI. Case discussed w/ patient's son, Dr. Quintero. Will continue to discuss disposition planning as patient is not safe to return to home alone at his time. Diagnostic Results: VPA 70.9 on 08/30/18 Medication Change: No Medical Record Reviewed: Yes Consults ordered or reviewed: Medicine consult, PT Mental Status Examination - Cognitive Function Orientation: Person, Place ("Hospital") Memory: Impaired Attention: Poor Concentration: Poor Association: Loose Fund of Knowledge: Poor Decription of patient's judgement and insights: Poor I/J - Mood Mood: Neutral - Affect Affect: Other (Labile) - Speech Speech: Appropriate - Formal Thought Process Formal Thought Process: Loosening of associations, Circumstantial Psychotic Thoughts and Behaviors: Denies AH/VH - Suicidal Ideation Suicidal Ideation: No - Homicidal Ideation Homicidal Ideation: No Goal/Treatment Plan - Goal/Treatment Plan Need for Continued Stay: Remain at risks for inpatient hospitalization, Severe functional impairment Progress Toward Problem(s) and Goals/Treatment Plan: Major Neurocognitive Disorder with behavioral disturbances; Psychosis NOS -Continue Risperdal -Continue Depakote, VPA 70.9 on 08/30/18 -Continue Namenda -Medicine consult -Psychology consult -Physical Therapy evaluation -Individual and group therapy -Psychoeducation -Case discussed w/ patient's son, Dr. Quintero -Disposition planning
--- NOTE | 2018-08-30 16:51 | US ---
Date of service: 08/30/2018 PROCEDURE: Ultrasound of the Kidneys HISTORY: JORGE COMPARISON: None available. TECHNIQUE: Sonogram of the kidneys. FINDINGS: RIGHT KIDNEY: Measures: 4.2 x 8.6 cm. Normal in size, contour and echogenicity. No stone, solid mass lesion or hydronephrosis visualized. LEFT KIDNEY: Measures: 4.4 x 9.5 cm. Normal in size, contour and echogenicity. No stone, solid mass lesion or hydronephrosis visualized. OTHER FINDINGS: None. IMPRESSION: Unremarkable renal sonogram.
--- NOTE | 2018-08-31 08:07 | PCM.PYCHPN ---
Psychiatric Progress Note - Psychiatric Progress Note Patient seen today, length of contact: Pt evaluated, case discussed w/ team, chart reviewed Patient Chief Complaint: Behavioral Disturbances Problems Identified/Issues Discussed: Patient is calmer and less irritable/labile. She had improved sleep at night. She denies acute paranoia. She continues to have poor insight/judgment due to chronic neurocognitive impairment. No violence or aggression. No adverse e ffects to medications reported/observed. No AH/VH/SI/HI. Diagnostic Results: VPA 70.9 on 08/30/18 Medication Change: No Medical Record Reviewed: Yes Consults ordered or reviewed: Medicine consult, PT Mental Status Examination - Cognitive Function Orientation: Person, Place ("Hospital") Memory: Impaired Attention: Poor Concentration: Poor Association: Loose Fund of Knowledge: Poor Decription of patient's judgement and insights: Poor I/J - Mood Mood: Neutral - Affect Affect: Other (Labile) - Speech Speech: Appropriate - Formal Thought Process Formal Thought Process: Loosening of associations, Circumstantial Psychotic Thoughts and Behaviors: Denies AH/VH - Suicidal Ideation Suicidal Ideation: No - Homicidal Ideation Homicidal Ideation: No Goal/Treatment Plan - Goal/Treatment Plan Need for Continued Stay: Remain at risks for inpatient hospitalization, Severe functional impairment Progress Toward Problem(s) and Goals/Treatment Plan: Major Neurocognitive Disorder with behavioral disturbances; Psychosis NOS -Continue Risperdal -Continue Depakote, VPA 70.9 on 08/30/18 -Continue Namenda -Medicine consult -Psychology consult -Physical Therapy evaluation -Individual and group therapy -Psychoeducation -Case discussed w/ patient's son, Dr. Quintero -Disposition planning- patient to live with her son when she is psychiatrically stable, as she is not safe to be discharged to home alone at this time due to neurocognitive impairments
[2018-08-31] MEDS: Divalproex 125 mg Sprinkle Capsule PO SCH ×2 (08:29→16:41)
[2018-08-31] MEDS: Pantoprazole 40 mg EC Tab PO SCH (08:32)
[2018-08-31] MEDS: Risperidone M tab 0.5MG PO SCH ×2 (08:32→21:00)
--- NOTE | 2018-08-31 15:38 | PCM.BM ---
Treatment Plan Problems - Problems identified on initial assessmt Agitated/Aggressive Behavior Date Initiated: 08/23/18 Time Initiated: 19:30 Assessment reference: NA Status: Active Priority: 1 Ineffeective Impulse Control Date Initiated: 08/23/18 Time Initiated: 19:30 Assessment reference: NA Status: Active Priority: 2 Medication Nonadherence Date Initiated: 08/23/18 Time Initiated: 19:30 Assessment reference: NA Status: Active Priority: 3 Treatment assets and liabiliti Patient Assests: good support system, negotiates basic needs Patient Liabilities: medical problems, imparied memory - Milieu Protocol Maintain good personal hygiene: daily Encourage regular showers, daily Remind patient to perform daily oral care, daily Assist patient to perform ADL's Maintain personal safety: every shift Educate patient to report safety concerns to staff, every shift Monitor environment for contraband/sharps Medication safety: Monitor for expected outcome, potential side effects: every shift, Assess barriers to learning: every shift, Assess readiness for medication education: every shift Milieu Narrative: Major Neurocognitive Disorder with behavioral disturbances; Psychosis NOS -Continue Risperdal -Continue Depakote, VPA 70.9 on 08/30/18 -Continue Namenda -Medicine consult -Psychology consult -Physical Therapy evaluation -Individual and group therapy -Psychoeducation -Case discussed w/ patient's son, Dr. Quintero -Disposition planning- patient to live with her son when she is psychiatrically stable, as she is not safe to be discharged to home alone at this time due to neurocognitive impairments Family Contact Family involvement: Family/SO is involved Family contact: Patient agrees to contact, Family has been contacted by patient, Telephone contact initiated by staff Family contact name: Dr. Yuniel Quintero Family contacted how many times per week?: 2 Discharge/Continuing Care - Education Needs Education Needs: Family Medication, Family Diagnosis/Disease Process, Family Coping Skills, Family Placement options, Family Community resources, Family Activities of Daily Living, Family Uses of Medical Equipment, Family Health Practices/Safety, Family Personal Hygiene/Grooming, Family Aftercare Safety Plan, Patient Medication, Patient Diagnosis/Disease Process, Patient Coping Skills, Patient Placement options, Patient Community resources, Patient Activities of Daily Living, Patient Uses of Medical Equipment, Patient Health Practices/Safety, Patient Personal Hygiene/Grooming, Patient Aftercare Safety Plan - Discharge Discharge Criteria: Tolerates medication w/o severe side effects, Free of agitation, Normal sleep pattern, Ability to care for self, Reduction of target symptoms Discharge to:: Jail - Additional Comments 08/24/18 16:07 Pt discussed in team meeting. Pt observed to be asleep and unable to attend team meeting. Reason for admission reviewed and discussed. Collateral information obtained form son discussed. Please refer to SW Progress Note for additional information. Pt referred to [facility] secondary to increased agitation, irritability, and paranoid bx's. Pt is dx with dementia. Pt's medical and social issues reviewed and discussed. Pt's medications reviewed. Pt's son is Healthcare Proxy and attending MD spoke with son regarding treatment. Pt's son requesting petroleum terminal plant operator acre placement as pt cannot live alone and refuses assistance at home. SW to continue to follow case. - Treatment Team Participation Patient/Family/SO Statement: Major Neurocognitive Disorder with behavioral disturbances; Psychosis NOS -Continue Risperdal -Continue Depakote, VPA 70.9 on 08/30/18 -Continue Namenda -Medicine consult -Psychology consult -Physical Therapy evaluation -Individual and group therapy -Psychoeducation -Case discussed w/ patient's son, Dr. Quintero -Disposition planning- patient to live with her son when she is psychiatrically stable, as she is not safe to be discharged to home alone at this time due to neurocognitive impairments Discussed with Family/SO: No (Discussed prior to tx meeting) Was Patient/Family/SO present at Treatment Team Meeting: No (Pt observed to be asleep) Treatment Plan Review Patient participation: Yes Family/SO/Caregiver participation: Yes (Reviewed with son, Dr. Yuniel Quintero prior to team meeting) Additional Comments: Pt seen and discussed in team meeting. Pt's progress and bx on the unit reviewed and discussed at length. Pt reported feeling "better." When asked to further elaborate, pt stated "I'm able to remember things better." Pt was able to provide adjusto writer operator with the correct home address and date of . Pt reported that she lives alone in her apartment, but her sister resides on the 2nd floor and her grandson resides in the basement apartment. Pt denied any acute symptoms. Pt reported improved sleep and fair appetite. Pt informed that she will be discharged on 09/02/2018 to the care of her sons, Qasim and Yuniel. Marketing Support Manager explained to pt that she cannot return home to her own apartment because she cannot be left alone and requires for someone to care for her. Marketing Support Manager informed pt that the plan is for pt to go reside with her son, Qasim. Pt reported "if that is what they want me to do I'll do." Pt reported that her son, Qasim resides in [place] but cannot recall the town. Pt reported that if her sons also want her to go back and forth between both of their homes that she will do that as well. Pt was calm, cooperative and pleasant with interdisciplinary team. Pt was observed to be smiling appropriately and engaged in conversation with team appropriately. SW will continue to follow case. - Problem Agitated/Aggressive Behavior Date Initiated: 08/23/18 Time Initiated: 19:30 Progress toward outcomes: resolved (Pt is no longer displaying any verbal or physical aggression.) Ineffeective Impulse Control Date Initiated: 08/23/18 Time Initiated: 19:30 Progress toward outcomes: resolved Medication Nonadherence Date Initiated: 08/23/18 Time Initiated: 19:30 Progress toward outcomes: resolved (Pt is compliant with meds.) - Discharge / Continuing Care Discharge to:: Home, With Family Behavioral Health Services: Outpatient therapy, Other ([facility]) Health Needs: Follow up care/test, Doctor appointments, Special equipment, Nutritional, Medications/Rx, Educational, Recreational/Social
[2018-09-01] MEDS: Divalproex 125 mg Sprinkle Capsule PO SCH ×2 (08:08→17:16)
[2018-09-01] MEDS: Pantoprazole 40 mg EC Tab PO SCH (08:09)
[2018-09-01] MEDS: Risperidone M tab 0.5MG PO SCH ×2 (08:09→21:04)
--- NOTE | 2018-09-01 08:36 | PCM.PYCHPN ---
Psychiatric Progress Note - Psychiatric Progress Note Patient seen today, length of contact: Pt evaluated, case discussed w/ team, chart reviewed Patient Chief Complaint: Behavioral Disturbances, now improved Problems Identified/Issues Discussed: Patient is improving clinically. She had improved sleep at night. No acute paranoia. No periods of agitation or aggression. No adverse effects to medications reported/observed. No AH/VH/SI/HI. Case discussed w/ patient's son, Dr. Quintero. Patient to be discharged tomorrow under the care of her family if she continues to improve clinically. Diagnostic Results: VPA 70.9 on 08/30/18 Medication Change: No Medical Record Reviewed: Yes Consults ordered or reviewed: Medicine consult, PT Mental Status Examination - Cognitive Function Orientation: Person, Place ("Hospital") Memory: Impaired Attention: Poor Concentration: Poor Association: Loose Fund of Knowledge: Poor Decription of patient's judgement and insights: Chronic limitations in I/J due to major neurocognitive disorder - Mood Mood: Neutral - Affect Affect: Broad - Speech Speech: Appropriate - Formal Thought Process Formal Thought Process: Loosening of associations Psychotic Thoughts and Behaviors: Denies AH/VH - Suicidal Ideation Suicidal Ideation: No - Homicidal Ideation Homicidal Ideation: No Goal/Treatment Plan - Goal/Treatment Plan Need for Continued Stay: Severe functional impairment Progress Toward Problem(s) and Goals/Treatment Plan: Major Neurocognitive Disorder with behavioral disturbances; Psychosis NOS -Continue Risperdal -Continue Depakote, VPA 70.9 on 08/30/18 -Continue Namenda -Medicine consult -Psychology consult -Physical Therapy evaluation -Individual and group therapy -Psychoeducation -Case discussed w/ patient's son, Dr. Quintero -Disposition planning- Discharge tomorrow under the care of her family if patient continues to improve clinically Estimated Date of D/C: 09/02/18
[2018-09-01 12:35] LABS: HEMOGLOBIN 11.4 g/dL (12.0-16.0); MEAN CELL VOLUME 82.7 fl (81.0-99.0); MEAN CORPUSCULAR HEMOGLOBIN 27.5 pg (27.0-31.0); MEAN CORPUSCULAR HGB CONC 33.3 g/dL (33.0-37.0); RBC 4.15 Mil/uL (3.80-5.20); RED CELL DISTRIBUTION WIDTH 14.2 % (11.5-14.5); WHITE BLOOD COUNT 5.3 K/uL (4.8-10.8)
[2018-09-01 13:51] LABS: ALB/GLOB RATIO 1.2 (1.0-2.1); ALBUMIN 3.5 g/dL (3.5-5.0); CALCIUM 9.3 mg/dL (8.4-10.2)
--- NOTE | 2018-09-01 15:41 | CP.PCM.PN ---
Subjective - Date & Time of Evaluation Date of Evaluation: 09/01/18 Time of Evaluation: 08:30 - Subjective Subjective: no AD, calm, smiling, Pt's friends visiting at bedside Objective - Vital Signs/Intake and Output Vital Signs (last 24 hours): Temp Pulse Resp BP Pulse Ox 97.0 F L 73 19 103/60 09/01/18 15:32 09/01/18 15:32 09/01/18 15:32 09/01/18 15:32 - Medications Medications: Current Medications Acetaminophen (Tylenol 325mg Tab) 650 mg PO Q4 PRN PRN Reason: Pain, moderate (4-7) Stop: 09/02/18 07:30 Al Hydrox/Mg Hydrox/Simethicone (Maalox Plus 30 Ml) 30 ml PO Q4 PRN PRN Reason: Dyspepsia Stop: 09/02/18 07:30 Last Admin: 08/29/18 17:34 Dose: 30 ml Atorvastatin Calcium (Lipitor) 40 mg PO DAILY [facility] Last Admin: 09/01/18 08:10 Dose: 40 mg Bismuth Subsalicylate (Pepto-Bismol) 524 mg PO Q4 PRN PRN Reason: Diarrhea Stop: 09/02/18 07:30 Clopidogrel Bisulfate (Plavix) 75 mg PO DAILY [facility] Last Admin: 09/01/18 08:09 Dose: 75 mg Diphenhydramine HCl (Benadryl) 25 mg PO HS PRN PRN Reason: Insomnia Stop: 09/02/18 07:30 Last Admin: 08/30/18 21:23 Dose: 25 mg Divalproex Sodium (Depakote Sprinkles) 250 mg PO BID [facility] Last Admin: 09/01/18 08:08 Dose: 250 mg Docusate Sodium (Colace) 100 mg PO BID [facility] Lactulose (Enulose) 20 gm PO DAILY PRN PRN Reason: Constipation Lorazepam (Ativan) 0.5 mg PO HS PRN PRN Reason: Insomnia Stop: 09/06/18 19:38 Lorazepam (Ativan) 0.5 mg PO Q6 PRN PRN Reason: Anixety/Agitation Stop: 09/06/18 19:38 Last Admin: 08/29/18 22:55 Dose: 0.5 mg Losartan Potassium (Cozaar) 100 mg PO DAILY [facility] Last Admin: 09/01/18 08:10 Dose: 100 mg Magnesium Hydroxide (Milk Of Magnesia) 30 ml PO HS PRN PRN Reason: Constipation Stop: 09/02/18 07:30 Memantine (Namenda) 5 mg PO DAILY [facility] Last Admin: 09/01/18 08:10 Dose: 5 mg Pantoprazole Sodium (Protonix Ec Tab) 40 mg PO DAILY [facility] Last Admin: 09/01/18 08:09 Dose: 40 mg Risperidone (Risperdal M-Tab) 0.5 mg PO Q12 [facility] Last Admin: 09/01/18 08:09 Dose: 0.5 mg - Labs Labs: 09/01/18 12:00 09/01/18 12:00 - Constitutional Appears: No Acute Distress - Head Exam Head Exam: NORMAL INSPECTION - Eye Exam Eye Exam: PERRL - ENT Exam ENT Exam: Normal Exam - Neck Exam Neck Exam: Normal Inspection - Respiratory Exam Respiratory Exam: NORMAL BREATHING PATTERN - Cardiovascular Exam Cardiovascular Exam: REGULAR RHYTHM Additional comments: PPM - GI/Abdominal Exam GI & Abdominal Exam: Soft, Normal Bowel Sounds - Extremities Exam Extremities Exam: Normal Inspection - Back Exam Back Exam: NORMAL INSPECTION - Neurological Exam Neurological Exam: Awake Additional comments: alert, oriented x 2, no focal motor/sensory deficit - Psychiatric Exam Psychiatric exam: Normal Mood Additional comments: Calm - Skin Skin Exam: Warm Assessment and Plan (1) Hypertension Status: Chronic (2) Pacemaker Status: Chronic (3) CAD (coronary artery disease) Status: Chronic (4) GERD (gastroesophageal reflux disease) Status: Chronic (5) High cholesterol Status: Chronic (6) Osteoarthritis Status: Chronic (7) Dementia Status: Acute (8) Dehydration Assessment & Plan: mild Status: Acute - Assessment and Plan (Free Text) Plan: Renal US normal,, intact PTH and Phosphorus normal, Patient to increase fluids PO intake, Patient is medically cleared to be discharged in am
[2018-09-02 06:07] VITALS: RESP 18
[2018-09-02] MEDS: Pantoprazole 40 mg EC Tab PO SCH (08:22)
[2018-09-02] MEDS: Risperidone M tab 0.5MG PO SCH (08:22)
[2018-09-02] MEDS: Divalproex 125 mg Sprinkle Capsule PO SCH ×2 (08:23→17:38)
--- NOTE | 2018-09-02 08:29 | PCM.PYCHDC ---
Mental Status Examination - Mental Status Examination Orientation: Person, Place Memory: Impaired Mood: Neutral Affect: Broad Speech: Appropriate Attention: Poor Concentration: Poor Formal Thought Process: Circumstantial Description of patient's judgement and insight: Chronic limitations in I/J due to major neurocognitive disorder Psychotic Thoughts and Behaviors: Denies AH/VH Suicidal Ideation: No Current Homicidal Ideation?: No Discharge Summary - Discharge Note Reason for Hospitalization: HPI: 83 yo female, with h/o Dementia, HTN, CAD, HLD, GERD, admitted w/ worsening memory, behavioral disturbances, mood lability and worsening paranoia. Patient currently oriented to self and "hospital." She reports that she has intermittent feelings of depression and anxiety, but denies currently feeling depressed/anxious. She denies sleep/appetite disturbances. No HI. No current AH/VH. Case discussed w/ patients' son and health care proxy, Dr. Quintero. PMHx: Dementia, HTN, CAD, HLD, GERD PPHx: Patient was on Risperdal 0.25 mg PO BID on the medical unit; admitted to [facility] for one day last week but was transferred to medicine due to syncopal episode ALL: [place] SHx: Lives alone, from [place]; denies drugs/etoh/cig use Laboratory Data: Abnormal Lab Results 09/01/18 09/01/18 12:00 12:00 WBC 5.3 RBC 4.15 Hgb 11.4 L Hct 34.3 MCV 82.7 MCH 27.5 MCHC 33.3 RDW 14.2 Plt Count 358 Sodium 140 Potassium 4.1 Chloride 106 Carbon Dioxide 24 Anion Gap 14 BUN 32 H Creatinine 1.2 Est GFR ( Amer) 52 Est GFR (Non-Af Amer) 43 Random Glucose 98 Calcium 9.3 Total Bilirubin 0.4 AST 25 ALT 21 Alkaline Phosphatase 56 Total Protein 6.5 Albumin 3.5 Globulin 2.9 Albumin/Globulin Ratio 1.2 Consultations:: List each consultation separately and include: 1. Reason for request. 2. Findings. 3. Follow-up Consultations: Medicine consult, PT Summary of Hospital Course include:: 1. Description of specific treatment plan utilized for patients during their course of treatmen. 2. Summarize the time- course for resolution of acute symptoms and/or regressed behaviors. 3. Describe issues identified and worked on during hospitalization. 4. Describe medication utilized. 5. Describe medical problems identified and treated. 6. Reassessment of suicide risk Summary of Hospital Course: Patient was admitted to the psychiatry unit. Individual and group therapy were provided. Patient was stabilized on Depakote 250 mg PO BID, Namenda 5 mg PO Daily and Risperdal 0.5 mg PO Q12 hr. She no longer has behavioral disturbances. She denies acute paranoia. She is calm, cooperative and reports her mood is stable. Patient continues to have chronic deficits due to major neurocognitive disorder. She is psychiatrically stable for discharge at this time. Patient to be discharged under the care of her family. Case discussed w/ her son, Dr. Quintero who is in agreement with treatment plan. - Diagnosis (1) Dementia with behavioral disturbance Current Visit: Yes Status: Acute (2) Unspecified psychosis Current Visit: No Status: Acute Priority: High - Final Diagnosis (DSM 5) Condition upon Discharge: STABLE DSM 5: Major Neurocognitive Disorder with behavioral disturbances; Psychosis NOS Disposition: HOME/ ROUTINE Follow-up Treatment Plan: Major Neurocognitive Disorder with behavioral disturbances; Psychosis NOS -Discharge to home with outpatient psychiatric follow-up Prescriptions/Medication Reconciliation: Divalproex [Depakote] 250 mg PO BID #60 tcp LORazepam [Ativan] 0.5 mg PO ONCE PRN #30 tab PRN Reason: Anxiety Memantine [Namenda] 5 mg PO DAILY #30 tab Risperidone 0.5 mg PO Q12 #60 tablet - Smoking Cessation Smoking Cessation Medication prescribed: No Reason for not providing: Not indicated - Antipsychotic Medications Pt discharged on 2 or more routine antipsychotic medications: No
--- NOTE | 2018-09-02 09:39 | RAD ---
Date of service: 09/02/2018 HISTORY: pain COMPARISON: Abdomen obstructive series 12/24/2008. FINDINGS: BOWEL: Prominent retained fecal material is identified in the interval throughout majority of the colon and to a moderate degree at the rectum. Constipation suggested is suggested. No bowel obstruction or prominent free intra peritoneal gas collection appreciable. No abnormal intra-abdominal calcifications although surgical clips are again seen at the right upper quadrant abdomen and prior apparent nasogastric tube has been removed. BONES: No acute fracture appreciable as imaged. OTHER FINDINGS: None. IMPRESSION: Prominent retained fecal material throughout large bowel may indicate constipation. Clinically correlate. No bowel obstruction or prominent free intra peritoneal gas collection appreciable.
[2018-09-02 16:21] VITALS: BP 119/59; PULSE 84; TEMP 97.4
--- NOTE | 2018-09-02 23:23 | CON ---
DATE: 09/01/2018 REFERRING DOCTOR: Polina Bae MD REASON FOR CONSULTATION: Abdominal pain. HISTORY OF PRESENT ILLNESS: This is a pleasant 83-year-old female with history of dementia, hypertension, hyperlipidemia and GERD who comes in with paranoia and GI was called essentially for abdominal pain, rectal bleeding, and constipation. The patient is currently doing well, no complaints, just some mild abdominal fullness and bloating. She is straining for bowel movements, otherwise lying in bed comfortably, in no apparent distress. PAST MEDICAL HISTORY: As above. PAST SURGICAL HISTORY: As above. MEDICATIONS: Reviewed. REVIEW OF SYSTEMS: All other systems have been reviewed and negative apart from the HPI. PHYSICAL EXAMINATION: GENERAL: This is a pleasant, elderly appearing female, lying in bed comfortably, in no apparent distress. VITAL SIGNS: Here in the hospital grossly unremarkable. HEENT: Head: Normocephalic and atraumatic. Eyes: Pupils equally reactive to light bilaterally. No conjunctival pallor or icterus. NECK: Supple. Normal range of motion. No lymphadenopathy appreciated. LUNGS: Coarse breath sounds bilaterally. HEART: S1 and S2. Regular rate and rhythm. No murmur appreciated. ABDOMEN: Soft, distended. There is some discomfort and fullness. No rebound. No guarding. RECTAL: Deferred. EXTREMITIES: Pulses felt bilaterally. SKIN: Warm, dry, and intact. NEUROLOGIC: A and O x2. LABORATORY DATA: Labs and radiology have been reviewed. WBC is 5.3, hemoglobin is stable at 11.4, hematocrit 34.3, and platelet count is 358. Creatinine is 1.2. ASSESSMENT AND PLAN: This is an 83-year-old female with constipation, rectal bleeding. From a gastrointestinal standpoint, we would recommend a KUB for now and treat empirically with lactulose and/or other laxatives. We will follow the patient with you. Thank you for the consult. Dante Maddox MD/ PhD cc: Polina Bae MD
== END 2018-09-02 18:28 | disposition home or self-care (01) | DRG 884 ==
LOC: H.STEP 17:32
PROVIDERS: ADMIT Psychiatry & Neurology Psychiatry; ATTEND Psychiatry & Neurology Psychiatry
PROC: GZHZZZZ Group Psychotherapy (ICD-10-PCS; principal; 2018-08-23)
PROC: GZ58ZZZ Individual Psychotherapy, Cognitive-Behavioral (ICD-10-PCS; 2018-08-23)
DX: F01.51 Vascular dementia, unspecified severity, with behavioral disturbance (principal); F29 Unspecified psychosis not due to a substance or known physiological condition; E86.0 Dehydration; F41.9 Anxiety disorder, unspecified; I25.10 Atherosclerotic heart disease of native coronary artery without angina pectoris; I10 Essential (primary) hypertension; E78.5 Hyperlipidemia, unspecified; E78.00 Pure hypercholesterolemia, unspecified; K21.9 Gastro-esophageal reflux disease without esophagitis; K59.00 Constipation, unspecified; M19.90 Unspecified osteoarthritis, unspecified site; Z95.0 Presence of cardiac pacemaker; Z95.5 Presence of coronary angioplasty implant and graft; Z87.440 Personal history of urinary (tract) infections; Z79.899 Other long term (current) drug therapy; Z87.442 Personal history of urinary calculi; Z87.891 Personal history of nicotine dependence